=== PATIENT | male | born 1970 | race Caucasian/White ===

== ENCOUNTER 2016-06-29 16:45 | Inpatient (IN) | payer BC ==
[~2016-06-29] VITALS: Ht 182.9 cm; Wt 78.5 kg
[2016-06-29] MEDS ORDERED: Vancomycin 1.5gm/D5W 300ml 325 ML IVPB ONE (18:00)
[2016-06-29 18:18] LABS: APPEARANCE,URINE CLEAR; BASOPHILS % (AUTO) 0.8 % (0.0-2.0); EOSINOPHILS % (AUTO) 0.1 % (0.0-3.0); KETONES,URINE NEGATIVE (NEGATIVE); LEUKOCYTE ESTERASE ,URINE NEGATIVE (NEGATIVE); LYMPHOCYTES % (AUTO) 12.7 % (20.0-45.0); MEAN CORPUSCULAR HEMOGLOBIN 35.5 PG (27.0-31.0); MEAN CORPUSCULAR HGB CONC 37.3 G/DL (32.0-36.0); MEAN CORPUSCULAR VOLUME 95 FL (80-99); MEAN PLATELET VOLUME 5.8 FL (6.5-10.1); MONOCYTES % (AUTO) 7.4 % (1.0-10.0); NEUTROPHILS % (AUTO) 79.1 % (45.0-75.0); NITRITE,URINE NEGATIVE (NEGATIVE); PH,URINE 6 (4.5-8.0); PLATELET COUNT 284 K/UL (150-450); PROTEIN,URINE NEGATIVE (NEGATIVE); RED BLOOD COUNT 4.71 M/UL (4.70-6.10); RED CELL DISTRIBUTION WIDTH 12.1 % (11.6-14.8); UROBILINOGEN,URINE NORMAL MG/DL (0.0-1.0); WHITE BLOOD COUNT 13.6 K/UL (4.8-10.8)
[2016-06-29 18:23] LABS: ALANINE AMINOTRANSFERASE 36 U/L (3-41); ALBUMIN/GLOBULIN RATIO 1.8 (1.0-2.7); ANION GAP 18 (5-15); ASPARTATE AMINO TRANSFERASE 26 U/L (5-40); CALCIUM 9.7 mg/dL (8.6-10.2); CARBON DIOXIDE 25 mEQ/L (20-30); CHLORIDE 93 mEQ/L (98-107); CREATININE 1.2 mg/dL (0.7-1.2); GLOMERULAR FILTRATION RATE > 60 mL/min (>60); HEMOLYSIS 8; POTASSIUM 4.2 mEQ/L (3.4-4.9); SODIUM 136 mEQ/L (135-145)
--- NOTE | 2016-06-29 18:38 | Emergency Room Report ---
History of Present Illness General Chief Complaint: General Complaint Source: Patient Present Illness HPI Patient is a 45-year-old male sent in by private care physician for increased cough and difficulty breathing. Patient had previously been seen at his physician's office and was noted to have MRSA positive sputum.. Patient had the been noted to be sensitive to vancomycin and linezolid. The patient was noted to have increased subjective fever. He was noted to have increased a productive cough as well as generalized weakness. The patient had been previously on oral Bactrim and had worsening symptoms despite being on oral medications. Allergies: Coded Allergies: HYDROMORPHONE (Verified Allergy, Unknown, 06/29/16) Patient History Past Medical History: see triage record Reviewed Nursing Documentation: PMH: Agreed, PSxH: Agreed Nursing Documentation-PMH Past Medical History: No History, Except For Hx Asthma: Yes Review of Systems All Other Systems: negative except mentioned in HPI Physical Exam Vital Signs Date Time Temp Pulse Resp B/P Pulse Ox O2 Delivery O2 Flow Rate FiO2 06/29/16 17:15 99.1 120 20 132/78 95 Room Air Sp02 EP Interpretation: reviewed, normal General Appearance: normal inspection, well appearing, no apparent distress, alert, GCS 15 Head: atraumatic ENT: normal ENT inspection, hearing grossly normal, normal voice Neck: normal inspection, full range of motion, supple, no bony tend Respiratory: normal inspection, lungs clear, normal breath sounds, no respiratory distress, no retraction, no wheezing Cardiovascular #1: regular rate, rhythm, no edema Gastrointestinal: normal inspection, normal bowel sounds, non tender, soft, no guarding, no hernia Genitourinary: no CVA tenderness Musculoskeletal: normal inspection, back normal, normal range of motion Neurologic: normal inspection, alert, oriented x3, responsive, 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 Differential diagnosis included but was not limited to bronchitis, pneumonia, pulmonary embolism, pericarditis, asthma, foreign body. The patient sputum culture was noted to be positive for MRSA. Patient was noted to be febrile noted to have elevated white blood count. Laboratory studies were notable for elevated white blood count. The patient given IV vancomycin in emergency department. Dr. Irving was contacted for inpatient management. Labs Test 06/29/16 17:55 White Blood Count 13.6 K/UL (4.8-10.8) Red Blood Count 4.71 M/UL (4.70-6.10) Hemoglobin 16.7 G/DL (14.2-18.0) Hematocrit 44.8 % (42.0-52.0) Mean Corpuscular Volume 95 FL (80-99) Mean Corpuscular Hemoglobin 35.5 PG (27.0-31.0) Mean Corpuscular Hemoglobin Concent 37.3 G/DL (32.0-36.0) Red Cell Distribution Width 12.1 % (11.6-14.8) Platelet Count 284 K/UL (150-450) Mean Platelet Volume 5.8 FL (6.5-10.1) Neutrophils (%) (Auto) 79.1 % (45.0-75.0) Lymphocytes (%) (Auto) 12.7 % (20.0-45.0) Monocytes (%) (Auto) 7.4 % (1.0-10.0) Eosinophils (%) (Auto) 0.1 % (0.0-3.0) Basophils (%) (Auto) 0.8 % (0.0-2.0) Urine Color Pale yellow Urine Appearance Clear Urine pH 6 (4.5-8.0) Urine Specific [place] 1.005 (1.005-1.035) Urine Protein Negative (NEGATIVE) Urine Glucose (UA) Negative (NEGATIVE) Urine Ketones Negative (NEGATIVE) Urine Occult Blood Negative (NEGATIVE) Urine Nitrite Negative (NEGATIVE) Urine Bilirubin Negative (NEGATIVE) Urine Urobilinogen Normal MG/DL (0.0-1.0) Urine Leukocyte Esterase Negative (NEGATIVE) Sodium Level 136 mEQ/L (135-145) Potassium Level 4.2 mEQ/L (3.4-4.9) Chloride Level 93 mEQ/L (98-107) Carbon Dioxide Level 25 mEQ/L (20-30) Anion Gap 18 (5-15) Blood Urea Nitrogen 16 mg/dL (7-23) Creatinine 1.2 mg/dL (0.7-1.2) Estimat Glomerular Filtration Rate > 60 mL/min (>60) Glucose Level 110 mg/dL (74-106) Lactic Acid Level 0.70 mmol/L (0.66-2.22) Calcium Level 9.7 mg/dL (8.6-10.2) Total Bilirubin 0.4 mg/dL (0.0-1.2) Aspartate Amino Transf (AST/SGOT) 26 U/L (5-40) Alanine Aminotransferase (ALT/SGPT) 36 U/L (3-41) Alkaline Phosphatase 73 U/L (40-129) Total Protein 7.0 g/dL (6.6-8.7) Albumin 4.5 g/dL (3.5-5.2) Globulin 2.5 g/dL Albumin/Globulin Ratio 1.8 (1.0-2.7) Chest X-Ray Diagnostic Results EP Interpretation: Yes Findings: no consolidation, no effusion, no pneumothorax, no acute cardiopulmonary disease Number of Views: 1 Last Vital Signs Date Time Temp Pulse Resp B/P Pulse Ox O2 Delivery O2 Flow Rate FiO2 06/29/16 17:15 99.1 120 20 132/78 95 Room Air Status: unchanged Disposition: ADMITTED INPATIENT Condition: Serious Marlon Teixeira June 29, 2016 18:38
[2016-06-29 19:12] VITALS: BP 131/90
[2016-06-29] MEDS ORDERED: TRUVADA 200 MG1 EAC1 ORAL (21:01)
[2016-06-29] MEDS ORDERED: MIRTAZAPINE30 MG ORAL (21:01)
[2016-06-29] MEDS ORDERED: ADDERAL20 MG ORAL (21:02)
[2016-06-29] MEDS ORDERED: XANAX1 MG ORAL (21:03)
[2016-06-29] MEDS ORDERED: WELLBUTRIN XL150 M1 ORAL (21:03)
[2016-06-29] MEDS ORDERED: VALACYCLOVIR500 MG ORAL (21:05)
[2016-06-29] MEDS ORDERED: ANDROGEL2.5 GM TD (21:06)
[2016-06-29] MEDS ORDERED: ACCOLATE20 M1 ORAL (21:21)
[2016-06-29] MEDS ORDERED: TESTOSTERO200 MG/1 M IM (21:23)
[2016-06-29] MEDS ORDERED: ALBUTEROL2.5 MG/3 M INH (21:23)
[2016-06-29] MEDS ORDERED: Zolpidem 5mg tab ORAL PRN (21:45)
[2016-06-29 22:04] VITALS: BP 129/84
[2016-06-30] VITALS: BP 132/87
[2016-06-30 04:00] VITALS: BP 132/77
[2016-06-30] MEDS: Vancomycin 1250mg/D5W 275ml IVPB SCH ×4 (05:55→18:29)
--- NOTE | 2016-06-30 08:08 | General Progress Note ---
Progress Note Progress Note [id number] full H&P dictated TOSIN MONSIVAIS June 30, 2016 08:08
[2016-06-30 08:22] VITALS: BP 135/82
[2016-06-30 08:27] LABS: BASOPHILS % (AUTO) 1.1 % (0.0-2.0); EOSINOPHILS % (AUTO) 0.9 % (0.0-3.0); LYMPHOCYTES % (AUTO) 22.5 % (20.0-45.0); MEAN CORPUSCULAR HEMOGLOBIN 31.6 PG (27.0-31.0); MEAN CORPUSCULAR VOLUME 96 FL (80-99); MEAN PLATELET VOLUME 5.9 FL (6.5-10.1); MONOCYTES % (AUTO) 10.1 % (1.0-10.0); NEUTROPHILS % (AUTO) 65.5 % (45.0-75.0); PLATELET COUNT 310 K/UL (150-450); RED BLOOD COUNT 4.98 M/UL (4.70-6.10); RED CELL DISTRIBUTION WIDTH 12.6 % (11.6-14.8); WHITE BLOOD COUNT 10.2 K/UL (4.8-10.8)
[2016-06-30 08:41] LABS: ANION GAP 14 (5-15); CALCIUM 9.4 mg/dL (8.6-10.2); CARBON DIOXIDE 26 mEQ/L (20-30); CHLORIDE 100 mEQ/L (98-107); CREATININE 1.1 mg/dL (0.7-1.2); GLOMERULAR FILTRATION RATE > 60 mL/min (>60); HEMOLYSIS 5; POTASSIUM 4.2 mEQ/L (3.4-4.9); SODIUM 140 mEQ/L (135-145)
[2016-06-30] MEDS: Docusate 100mg cap ORAL SCH ×2 (09:00→21:46)
--- NOTE | 2016-06-30 10:48 | Diagnostic Imaging Report ---
Indication: COUGH Technique: Single portable AP view of the chest. Findings: Comparison: None. The bones and extra pulmonary soft tissues, cardiomediastinal silhouette, pulmonary vasculature and parenchyma, and pleural surfaces are unremarkable. IMPRESSION: Negative portable AP chest.
[2016-06-30 11:51] VITALS: BP 127/84
--- NOTE | 2016-06-30 15:09 | Infectious Diseases Prog Note ---
Assessment/Plan Assessment/Plan Full consult dictated: A) 1) mrsa respiratory infection, ? 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 Irving and Dr. Lu 6) thank you Subjective Allergies: Coded Allergies: HYDROMORPHONE (Verified Allergy, Unknown, 06/29/16) Objective Vital Signs Last 24 Hour Vital Signs Date Time Temp Pulse Resp B/P Pulse Ox O2 Delivery O2 Flow Rate FiO2 06/30/16 11:51 97.9 87 18 127/84 96 Nasal Cannula 2.0 06/30/16 08:22 97.7 95 16 135/82 99 Nasal Cannula 2.0 06/30/16 04:00 97.7 84 18 132/77 98 Room Air 06/30/16 00:00 98.1 94 18 132/87 97 Room Air 06/29/16 22:05 99.1 101 20 129/84 98 Room Air 06/29/16 22:04 99.1 101 20 129/84 98 Room Air 06/29/16 19:12 99.1 103 20 131/90 96 Room Air 06/29/16 17:15 99.1 120 20 132/78 95 Room Air Height (Feet): 6 Height (Inches): 0.00 Weight (Pounds): 173 Laboratory Tests Test 06/29/16 17:55 06/30/16 07:50 White Blood Count 13.6 K/UL (4.8-10.8) H 10.2 K/UL (4.8-10.8) Red Blood Count 4.71 M/UL (4.70-6.10) 4.98 M/UL (4.70-6.10) Hemoglobin 16.7 G/DL (14.2-18.0) 15.7 G/DL (14.2-18.0) Hematocrit 44.8 % (42.0-52.0) 47.7 % (42.0-52.0) Mean Corpuscular Volume 95 FL (80-99) 96 FL (80-99) Mean Corpuscular Hemoglobin 35.5 PG (27.0-31.0) H 31.6 PG (27.0-31.0) H Mean Corpuscular Hemoglobin Concent 37.3 G/DL (32.0-36.0) H 33.0 G/DL (32.0-36.0) Red Cell Distribution Width 12.1 % (11.6-14.8) 12.6 % (11.6-14.8) Platelet Count 284 K/UL (150-450) 310 K/UL (150-450) Mean Platelet Volume 5.8 FL (6.5-10.1) L 5.9 FL (6.5-10.1) L Neutrophils (%) (Auto) 79.1 % (45.0-75.0) H 65.5 % (45.0-75.0) Lymphocytes (%) (Auto) 12.7 % (20.0-45.0) L 22.5 % (20.0-45.0) Monocytes (%) (Auto) 7.4 % (1.0-10.0) 10.1 % (1.0-10.0) H Eosinophils (%) (Auto) 0.1 % (0.0-3.0) 0.9 % (0.0-3.0) Basophils (%) (Auto) 0.8 % (0.0-2.0) 1.1 % (0.0-2.0) Urine Color Pale yellow Urine Appearance Clear Urine pH 6 (4.5-8.0) Urine Specific [place] 1.005 (1.005-1.035) Urine Protein Negative (NEGATIVE) Urine Glucose (UA) Negative (NEGATIVE) Urine Ketones Negative (NEGATIVE) Urine Occult Blood Negative (NEGATIVE) Urine Nitrite Negative (NEGATIVE) Urine Bilirubin Negative (NEGATIVE) Urine Urobilinogen Normal MG/DL (0.0-1.0) Urine Leukocyte Esterase Negative (NEGATIVE) Sodium Level 136 mEQ/L (135-145) 140 mEQ/L (135-145) Potassium Level 4.2 mEQ/L (3.4-4.9) 4.2 mEQ/L (3.4-4.9) Chloride Level 93 mEQ/L (98-107) L 100 mEQ/L (98-107) Carbon Dioxide Level 25 mEQ/L (20-30) 26 mEQ/L (20-30) Anion Gap 18 (5-15) H 14 (5-15) Blood Urea Nitrogen 16 mg/dL (7-23) 14 mg/dL (7-23) Creatinine 1.2 mg/dL (0.7-1.2) 1.1 mg/dL (0.7-1.2) Estimat Glomerular Filtration Rate > 60 mL/min (>60) > 60 mL/min (>60) Glucose Level 110 mg/dL (74-106) H 112 mg/dL (74-106) H Lactic Acid Level 0.70 mmol/L (0.66-2.22) Calcium Level 9.7 mg/dL (8.6-10.2) 9.4 mg/dL (8.6-10.2) Total Bilirubin 0.4 mg/dL (0.0-1.2) Aspartate Amino Transf (AST/SGOT) 26 U/L (5-40) Alanine Aminotransferase (ALT/SGPT) 36 U/L (3-41) Alkaline Phosphatase 73 U/L (40-129) Total Protein 7.0 g/dL (6.6-8.7) Albumin 4.5 g/dL (3.5-5.2) Globulin 2.5 g/dL Albumin/Globulin Ratio 1.8 (1.0-2.7) Current Medications Medications (Trade) Dose Ordered Sig/Ben Route PRN Reason Start Time Stop Time Status Last Admin Dose Admin Acetaminophen (Tylenol) 650 mg Q6H PRN ORAL Mild Pain (Pain Scale 1-3) 06/29/16 21:45 07/29/16 21:44 Dextrose (Dextrose 50%) STAT PRN IV Hypoglycemia 06/29/16 21:45 07/29/16 21:44 Docusate Sodium (Colace) 100 mg EVERY 12 HOURS ORAL 06/30/16 09:00 07/30/16 08:59 06/30/16 09:00 Vancomycin HCl 1 ea 1 ea DAILY PRN MISC Per rx protocol 06/29/16 21:45 07/29/16 21:44 Vancomycin HCl/ Dextrose (Vancomycin/D5W) 275 ml @ 183.333 mls/hr Q12HR@0600,1800 IVPB 06/30/16 06:00 07/05/16 05:59 06/30/16 05:55 Zolpidem Tartrate (Ambien) 5 mg HSPRN PRN ORAL Insomnia 06/29/16 21:45 07/29/16 21:44 CARMITA ORDONEZ June 30, 2016 15:09
--- NOTE | 2016-06-30 15:28 | Consultation ---
History of Present Illness General Date patient seen: June 30, 2016 Chief Complaint: General Complaint Referring physician: Dr. Irving Reason for Consultation: cough Present Illness HPI 45-year-old male with hx of asthma, hx of aspergillosis sent in by private care physician for increased cough and difficulty breathing. He has been coughing since December last year. He was noted to have MRSA positive sputum.. His initial CXR was negative in ER . He is admitted for further work up. Allergies: Coded Allergies: HYDROMORPHONE (Verified Allergy, Unknown, 06/29/16) Medication History Scheduled Alprazolam* (Xanax*), 1 TAB ORAL BID, (Reported) Bupropion HCl (Wellbutrin Xl), 300 MG ORAL DAILY, (Reported) Dextroamphetamine/Amphetamine (Adderall 20 mg Tablet), 20 MG ORAL TID, (Reported ) Emtricitabine/Tenofovir 200-300MG* (Truvada 200-300MG*), 1 TAB ORAL DAILY, ( Reported) Mirtazapine* (Remeron*), 60 MG ORAL BEDTIME, (Reported) Testosterone Cypionate (Testosterone Cypionate), 200 MG IM ONCE A WEEK, ( Reported) Valacyclovir Hcl* (Valtrex*), 1,000 MG ORAL DAILY, (Reported) Zafirlukast (Accolate), 20 MG ORAL TWICE A DAY, (Reported) Scheduled PRN Albuterol Sulfate* (Albuterol Sulfate Hhn*), 3 ML INH Q6HR PRN for Shortness of Breath, (Reported) Discontinued Medications Testosterone (Androgel), 1 PKT TD, (Reported) Discontinued Reason: Prescription changed Patient History Healthcare decision maker pt A&Ox4 Resuscitation status Full Code Advanced Directive on File Past Medical/Surgical History Past Medical/Surgical History: (1) Asthma Review of Systems All Other Systems: negative except mentioned in HPI Physical Exam General Appearance: WD/WN Lines, tubes and drains: peripheral, central line HEENT: normocephalic, atraumatic Neck: non-tender, normal alignment Respiratory/Chest: chest wall non-tender, lungs clear Cardiovascular/Chest: normal peripheral pulses, normal rate Abdomen: normal bowel sounds, non tender Last 24 Hour Vital Signs Date Time Temp Pulse Resp B/P Pulse Ox O2 Delivery O2 Flow Rate FiO2 06/30/16 11:51 97.9 87 18 127/84 96 Nasal Cannula 2.0 06/30/16 08:22 97.7 95 16 135/82 99 Nasal Cannula 2.0 06/30/16 04:00 97.7 84 18 132/77 98 Room Air 06/30/16 00:00 98.1 94 18 132/87 97 Room Air 06/29/16 22:05 99.1 101 20 129/84 98 Room Air 06/29/16 22:04 99.1 101 20 129/84 98 Room Air 06/29/16 19:12 99.1 103 20 131/90 96 Room Air 06/29/16 17:15 99.1 120 20 132/78 95 Room Air Intake and Output 06/29/16 06/30/16 19:00 07:00 Intake Total 1000 ml 240 ml Balance 1000 ml 240 ml Intake Oral 0 ml 240 ml IV Total 1000 ml # Voids 2 Laboratory Tests Test 06/29/16 17:55 06/30/16 07:50 White Blood Count 13.6 K/UL (4.8-10.8) H 10.2 K/UL (4.8-10.8) Red Blood Count 4.71 M/UL (4.70-6.10) 4.98 M/UL (4.70-6.10) Hemoglobin 16.7 G/DL (14.2-18.0) 15.7 G/DL (14.2-18.0) Hematocrit 44.8 % (42.0-52.0) 47.7 % (42.0-52.0) Mean Corpuscular Volume 95 FL (80-99) 96 FL (80-99) Mean Corpuscular Hemoglobin 35.5 PG (27.0-31.0) H 31.6 PG (27.0-31.0) H Mean Corpuscular Hemoglobin Concent 37.3 G/DL (32.0-36.0) H 33.0 G/DL (32.0-36.0) Red Cell Distribution Width 12.1 % (11.6-14.8) 12.6 % (11.6-14.8) Platelet Count 284 K/UL (150-450) 310 K/UL (150-450) Mean Platelet Volume 5.8 FL (6.5-10.1) L 5.9 FL (6.5-10.1) L Neutrophils (%) (Auto) 79.1 % (45.0-75.0) H 65.5 % (45.0-75.0) Lymphocytes (%) (Auto) 12.7 % (20.0-45.0) L 22.5 % (20.0-45.0) Monocytes (%) (Auto) 7.4 % (1.0-10.0) 10.1 % (1.0-10.0) H Eosinophils (%) (Auto) 0.1 % (0.0-3.0) 0.9 % (0.0-3.0) Basophils (%) (Auto) 0.8 % (0.0-2.0) 1.1 % (0.0-2.0) Urine Color Pale yellow Urine Appearance Clear Urine pH 6 (4.5-8.0) Urine Specific [place] 1.005 (1.005-1.035) Urine Protein Negative (NEGATIVE) Urine Glucose (UA) Negative (NEGATIVE) Urine Ketones Negative (NEGATIVE) Urine Occult Blood Negative (NEGATIVE) Urine Nitrite Negative (NEGATIVE) Urine Bilirubin Negative (NEGATIVE) Urine Urobilinogen Normal MG/DL (0.0-1.0) Urine Leukocyte Esterase Negative (NEGATIVE) Sodium Level 136 mEQ/L (135-145) 140 mEQ/L (135-145) Potassium Level 4.2 mEQ/L (3.4-4.9) 4.2 mEQ/L (3.4-4.9) Chloride Level 93 mEQ/L (98-107) L 100 mEQ/L (98-107) Carbon Dioxide Level 25 mEQ/L (20-30) 26 mEQ/L (20-30) Anion Gap 18 (5-15) H 14 (5-15) Blood Urea Nitrogen 16 mg/dL (7-23) 14 mg/dL (7-23) Creatinine 1.2 mg/dL (0.7-1.2) 1.1 mg/dL (0.7-1.2) Estimat Glomerular Filtration Rate > 60 mL/min (>60) > 60 mL/min (>60) Glucose Level 110 mg/dL (74-106) H 112 mg/dL (74-106) H Lactic Acid Level 0.70 mmol/L (0.66-2.22) Calcium Level 9.7 mg/dL (8.6-10.2) 9.4 mg/dL (8.6-10.2) Total Bilirubin 0.4 mg/dL (0.0-1.2) Aspartate Amino Transf (AST/SGOT) 26 U/L (5-40) Alanine Aminotransferase (ALT/SGPT) 36 U/L (3-41) Alkaline Phosphatase 73 U/L (40-129) Total Protein 7.0 g/dL (6.6-8.7) Albumin 4.5 g/dL (3.5-5.2) Globulin 2.5 g/dL Albumin/Globulin Ratio 1.8 (1.0-2.7) Height (Feet): 6 Height (Inches): 0.00 Weight (Pounds): 173 Medications Current Medications Medications (Trade) Dose Ordered Sig/Ben Route PRN Reason Start Time Stop Time Status Last Admin Dose Admin Acetaminophen (Tylenol) 650 mg Q6H PRN ORAL Mild Pain (Pain Scale 1-3) 06/29/16 21:45 07/29/16 21:44 Albuterol/ Ipratropium 3 ml 3 ml Q6HRT HHN 06/30/16 19:00 07/05/16 18:59 Ceftriaxone Sodium/Dextrose (Rocephin/D5W) 50 ml @ 100 mls/hr Q24H IVPB 06/30/16 16:00 07/07/16 15:59 Dextrose (Dextrose 50%) STAT PRN IV Hypoglycemia 06/29/16 21:45 07/29/16 21:44 Docusate Sodium (Colace) 100 mg EVERY 12 HOURS ORAL 06/30/16 09:00 07/30/16 08:59 06/30/16 09:00 Vancomycin HCl 1 ea 1 ea DAILY PRN MISC Per rx protocol 06/29/16 21:45 07/29/16 21:44 Vancomycin HCl/ Dextrose (Vancomycin/D5W) 275 ml @ 183.333 mls/hr Q12HR@0600,1800 IVPB 06/30/16 06:00 07/05/16 05:59 06/30/16 05:55 Zolpidem Tartrate (Ambien) 5 mg HSPRN PRN ORAL Insomnia 06/29/16 21:45 07/29/16 21:44 Assessment/Plan Problem List: (1) Persistent cough ICD Codes: R05 - Cough SNOMED: 999913115 (2) Asthma ICD Codes: J45.909 - Unspecified asthma, uncomplicated SNOMED: 021481379 (3) MRSA (methicillin resistant Staphylococcus aureus) infection ICD Codes: A49.02 - Methicillin resistant Staphylococcus aureus infection, unspecified site SNOMED: 156795834 Assessment/Plan sputum induction CT chest respiratory treatment phenergen +VIDA Pennington June 30, 2016 15:28
[2016-06-30 15:39] VITALS: BP 123/81
--- NOTE | 2016-06-30 15:50 | Diagnostic Imaging Report ---
Indication: COUGH Technique: Single portable AP view of the chest. Findings: Comparison: 06/29/16 Small calcified nodules again noted in left lung. The bones and extra pulmonary soft tissues, cardiomediastinal silhouette, pulmonary vasculature and parenchyma, and pleural surfaces remain otherwise unremarkable. IMPRESSION: Calcified old granulomas disease left lung Otherwise negative portable AP chest No change from prior exam.
[2016-06-30] MEDS: cefTRIAXone 1 GM in D5W 50 ML IVPB SCH (16:13)
--- NOTE | 2016-06-30 17:30 | History and Physical Report ---
DATE OF ADMISSION: 06/29/2016 PRIMARY PHYSICIAN: Nixon Rivera M.D. REASON FOR ADMISSION: MRSA pneumonia. CHIEF COMPLAINT: Cough. HISTORY OF PRESENT ILLNESS: The patient is a very pleasant 45-year-old male, with past medical history significant for asthma, started having cough. Apparently, the patient was with his father who unfortunately in the hospital for period of time in December. He started started having cough, phlegm. He received multiple course of treatment as an outpatient including most recent Bactrim with no improvement. The patient had an sputum induce culture, which revealed MRSA, which was only sensitive to vancomycin and linezolid and for that, the patient was sent to emergency room. I was called for admission. PAST MEDICAL HISTORY: Asthma. ALLERGIES: He is allergic to hydromorphone. SOCIAL HISTORY: He works as a salesman. There is no history of tobacco, alcohol or drug use. FAMILY HISTORY: Negative for any history of premature heart disease. REVIEW OF SYSTEMS: General: He complained of generalized weakness. Denies any fever, chills, or night sweats. Head And Neck: Neck denies any dysphagia, odynophagia, blurry vision, headache, or neck stiffness. Pulmonary: Complaint of shortness of breath and cough with yellow sputum. Cardiovascular: Complained of chest tightness and some palpitations. Gastrointestinal: Denies any nausea, vomiting, diarrhea, hematemesis, or hematochezia. Genitourinary: Denies any dysuria, frequency, or hematuria. Musculoskeletal: He complained of generalized weakness. Denies any localized weakness or numbness. PHYSICAL EXAMINATION: VITAL SIGNS: The patient has temperature of 99 degrees, blood pressure of 132/78, pulse rate of 120, respiratory rate of 18, and pulse oximetry of 95%. HEAD AND NECK: No JVP. No LAD. No thyromegaly. Extraocular movement intact. Pupils are reactive to light and accommodation. LUNGS: Diffuse wheezing in both lung. CARDIAC: Tachy S1 and S2. No murmur. No rub. ABDOMEN: Soft, nontender, and nondistended. EXTREMITY: No edema. No clubbing. No cyanosis. LABORATORY AND DIAGNOSTIC DATA: The patient had WBC count of 13.6, hemoglobin of 16.7, hematocrit of 44.8, and platelet count of 248,000. Chemistry reveals sodium 136, potassium 4, chloride 93, bicarbonate 25, BUN of 18, creatinine of 1.2, and glucose of 110. Calcium of 9.7. AST of 26, ALT of 36, and alkaline phosphatase of 73. urinalysis revealed specific gravity of 1.005, no WBC and no RBC. There is no chest x-ray. ASSESSMENT: 1. Methicillin resistant Staphylococcus aureus pneumonia. 2. Asthma exacerbation. PLAN: To start the patient on vancomycin. . was already called by Dr. Rivera from infectious disease standpoint of view. I would start a breathing treatment around the clock, DVT prophylaxis, and monitor the electrolytes closely. Miryam Irving M.D. DR: DAVON JOB#: [id number] CC:
[2016-06-30] MEDS: DuoNeb 0.5-3(2.5)mg/3ml neb HHN SCH (19:33)
[2016-06-30 20:00] VITALS: BP 145/93
--- NOTE | 2016-06-30 20:34 | Cardiology Progress Note ---
Assessment/Plan Assessment/Plan The patient is seen and examined, full consult note will be dictated. Objective Last 24 Hour Vital Signs Date Time Temp Pulse Resp B/P Pulse Ox O2 Delivery O2 Flow Rate FiO2 06/30/16 20:00 97.0 96 20 145/93 98 Nasal Cannula 2.0 06/30/16 19:38 99 Nasal Cannula 2.0 06/30/16 19:37 98 18 98 Nasal Cannula 2.0 06/30/16 19:36 95 18 98 Nasal Cannula 2.0 06/30/16 19:36 96 18 Nasal Cannula 2.0 06/30/16 19:35 Nasal Cannula 2.0 06/30/16 15:39 97.7 91 19 123/81 96 Nasal Cannula 2.0 06/30/16 11:51 97.9 87 18 127/84 96 Nasal Cannula 2.0 06/30/16 08:22 97.7 95 16 135/82 99 Nasal Cannula 2.0 06/30/16 04:00 97.7 84 18 132/77 98 Room Air 06/30/16 00:00 98.1 94 18 132/87 97 Room Air 06/29/16 22:05 99.1 101 20 129/84 98 Room Air 06/29/16 22:04 99.1 101 20 129/84 98 Room Air Intake and Output 06/29/16 06/30/16 19:00 07:00 Intake Total 1000 ml 240 ml Balance 1000 ml 240 ml Intake Oral 0 ml 240 ml IV Total 1000 ml # Voids 2 Laboratory Tests Test 06/30/16 07:50 White Blood Count 10.2 K/UL (4.8-10.8) Red Blood Count 4.98 M/UL (4.70-6.10) Hemoglobin 15.7 G/DL (14.2-18.0) Hematocrit 47.7 % (42.0-52.0) Mean Corpuscular Volume 96 FL (80-99) Mean Corpuscular Hemoglobin 31.6 PG (27.0-31.0) H Mean Corpuscular Hemoglobin Concent 33.0 G/DL (32.0-36.0) Red Cell Distribution Width 12.6 % (11.6-14.8) Platelet Count 310 K/UL (150-450) Mean Platelet Volume 5.9 FL (6.5-10.1) L Neutrophils (%) (Auto) 65.5 % (45.0-75.0) Lymphocytes (%) (Auto) 22.5 % (20.0-45.0) Monocytes (%) (Auto) 10.1 % (1.0-10.0) H Eosinophils (%) (Auto) 0.9 % (0.0-3.0) Basophils (%) (Auto) 1.1 % (0.0-2.0) Sodium Level 140 mEQ/L (135-145) Potassium Level 4.2 mEQ/L (3.4-4.9) Chloride Level 100 mEQ/L (98-107) Carbon Dioxide Level 26 mEQ/L (20-30) Anion Gap 14 (5-15) Blood Urea Nitrogen 14 mg/dL (7-23) Creatinine 1.1 mg/dL (0.7-1.2) Estimat Glomerular Filtration Rate > 60 mL/min (>60) Glucose Level 112 mg/dL (74-106) H Calcium Level 9.4 mg/dL (8.6-10.2) ZENIA MATHEW June 30, 2016 20:34
[2016-07-01] VITALS: BP 132/74
[2016-07-01] MEDS: DuoNeb 0.5-3(2.5)mg/3ml neb HHN SCH ×4 (01:00→19:40)
[2016-07-01 04:00] VITALS: BP 132/74
[2016-07-01 05:03] LABS: BASOPHILS % (AUTO) 1.2 % (0.0-2.0); EOSINOPHILS % (AUTO) 1.1 % (0.0-3.0); LYMPHOCYTES % (AUTO) 22.2 % (20.0-45.0); MEAN CORPUSCULAR HGB CONC 33.4 G/DL (32.0-36.0); MEAN CORPUSCULAR VOLUME 96 FL (80-99); MEAN PLATELET VOLUME 6.2 FL (6.5-10.1); MONOCYTES % (AUTO) 9.7 % (1.0-10.0); NEUTROPHILS % (AUTO) 65.8 % (45.0-75.0); PLATELET COUNT 302 K/UL (150-450); RED BLOOD COUNT 5.07 M/UL (4.70-6.10); RED CELL DISTRIBUTION WIDTH 12.1 % (11.6-14.8); WHITE BLOOD COUNT 10.7 K/UL (4.8-10.8)
[2016-07-01] MEDS: Vancomycin 1250mg/D5W 275ml IVPB SCH ×6 (05:22→21:06)
[2016-07-01 05:34] LABS: ANION GAP 13 (5-15); CALCIUM 9.1 mg/dL (8.6-10.2); CARBON DIOXIDE 27 mEQ/L (20-30); CHLORIDE 99 mEQ/L (98-107); GLOMERULAR FILTRATION RATE > 60 mL/min (>60); HEMOLYSIS 8; SODIUM 139 mEQ/L (135-145)
--- NOTE | 2016-07-01 05:51 | Consultation ---
DATE OF CONSULTATION: INFECTIOUS DISEASE CONSULTATION REFERRING PHYSICIAN: Miryam Irving M.D. REASON FOR CONSULTATION: MRSA respiratory infection, possible MRSA pneumonia. CHIEF COMPLAINT: The patient's chief complaint coming to the hospital is MRSA pneumonia. HISTORY OF PRESENT ILLNESS: This is a 45-year-old male who has a history of asthma. No other significant past medical history. He does have a history of aspergillosis treated in the past. The patient has been seeing his primary care physician, Dr. Nixon Rivera as an outpatient. I have discussed the case with Dr. Rivera at length. The patient had full discussion with Dr. Rivera and there is MRSA in the sputum and has MRSA respiratory infection. He has been tried on Bactroban, trial of steroids because of the history of underlying asthma also. The sputum came back with MRSA that was resistant to Bactrim. Because of worsening congestion and shortness of breath, the patient was admitted to [facility] for further management with IV antibiotics and further workup. The patient has been started on vancomycin, I may add Rocephin and sputum culture here is pending. Chest x-ray initially was negative, followup chest x-ray has been ordered, and a CT scan of the chest has been ordered. Case discussed with Dr. Lu, Pulmonary Medicine and also communicated with Dr. Irving. MAR was noted. Orders were noted. Notes were reviewed. Case discussed with RN. PAST MEDICAL HISTORY: The patient has a history of asthma and also history of aspergilloses in the past that was treated per the patient, also discussion with Dr. Rivera, this was I believe a few years ago. He does not have history of diabetes, hypertension. He is on PrEP therapy with Truvada, but no history of HIV, he is HIV negative. No history of malignancy. It looks like he does have a history of herpes in the past, he was on Valtrex, I think as a suppressive therapy. Psychiatric, he is on Wellbutrin and Xanax. MEDICATIONS: Upon reviewing the MAR, the patient is on the following medications. He is on vancomycin, I am adding Rocephin. He is on zolpidem, Tylenol, and IV fluids. He is going to get breathing treatments. He does have an inhaler, looks like at home. Medications prior to admission include albuterol, it looks like p.r.n. for shortness of breath. He is on Xanax, Wellbutrin, Adderall, Truvada, Remeron, testosterone, Valtrex, and Accolate. ALLERGIES: Hydromorphone. SOCIAL HISTORY: He is a past smoker. No alcohol or drug use. FAMILY HISTORY: No mention of exposure to tuberculosis or cancer. REVIEW OF SYSTEMS: Constitutional: He has no focal weakness, has generalized fatigue. He does have low grade fever, but no chills. No weight loss. Head And Neck: No head pain or neck pain. Cardiac: No chest pain or palpitations. GI: No nausea, vomiting, or diarrhea. : No dysuria or frequency. Pulmonary: He had congestion and sputum production. Skin: No rash. Neurologic: No seizures. Rest of the review of systems is otherwise limited. PHYSICAL EXAMINATION: VITAL SIGNS: Temperature 97.9 degrees, T-max 99.1 degrees, pulse rate 87, respiratory rate 18, blood pressure 124/84, and saturation 96%. GENERAL: The patent is alert, responsive, not in acute distress. He is alert and oriented x3. Mild congestion noted. HEAD AND NECK: Neck is supple. No thrush. No facial droop. Eye, no icterus. HEART: Regular. No gallop or murmur. LUNGS: Bilateral rhonchi. Possible rales and wheezing. ABDOMEN: Soft. Positive bowel sounds. SKIN: No rash or dermatitis. MUSCULOSKELETAL: No effusions or contractures. Lower extremities without cellulitis. PERIPHERAL VASCULAR: No cyanosis or gangrene. GENITOURINARY: He has no Garcia. LINE: Line site is without phlebitis. NEUROLOGIC: Generalized weakness. Responsive. LABORATORY AND DIAGNOSTIC DATA: Laboratory data is as follows. Creatinine is 1.1. White count on admission is 13.6, hemoglobin 16.7. White count now is 10.2, hemoglobin 15.7. The patient's chest x-ray initially was negative. Sputum culture was pending. Outside sputum culture grew out MRSA, only sensitive to daptomycin, linezolid, and vancomycin, was resistant to Bactrim. ASSESSMENT AND PLAN: 1. The patient sounds like he has an methicillin-resistant Staphylococcus aureus respiratory infection that was refractory to oral therapy and also resistant to oral therapy. The patient is congested and short of breath. The patient is on vancomycin, I am going to add Rocephin to cover other pathogens such as haemophilus influenza and also other common respiratory infections. Continue vancomycin and Rocephin to cover possible methicillin-resistant Staphylococcus aureus pneumonia and other pathogens. Check followup chest x-ray and CT scan of the chest. Initial chest x-ray is negative. The patient also is beginning breathing treatments and check sputum culture here. Case was discussed with Dr. Lu and also communicated with Dr. Irving. 2. The patient has history of aspergillosis , status post treatment. 3. History of asthma. 4. Possible psychiatric disease. 5. The patient is on pre-exposure prophylaxis therapy with Truvada. 6. Past smoker. 7. Allergy to hydromorphone. 8. Case was discussed with Dr. Nixon Rivera. 9. Case was discussed with the patient. 10. Continue treatment per primary consultants. Agapito Chang M.D. DR: Luis JOB#: [id number] CC:
[2016-07-01 08:00] VITALS: BP 115/78
[2016-07-01] MEDS: BuPROPion XL 150mg tab ORAL SCH (08:56)
[2016-07-01] MEDS: ALPRAZolam 0.5mg tab ORAL SCH ×2 (08:56→17:54)
[2016-07-01] MEDS: Docusate 100mg cap ORAL SCH ×2 (08:56→20:22)
--- NOTE | 2016-07-01 09:18 | General Progress Note ---
Assessment/Plan Status: doing well, stable, tolerating diet, ambulating well Status Narrative 1.MRSA PNA 2.anxiety 3. depression 4.ADHD 5.Asthma Assessment/Plan PLAN to continue breathing treatment iv anabiotic restart home meds fallow up with sputum culture Subjective Constitutional: Reports: malaise, weakness HEENT: Reports: no symptoms Cardiovascular: Reports: no symptoms Respiratory: Reports: SOB with excertion, sputum, wheezing Gastrointestinal/Abdominal: Reports: no symptoms Genitourinary: Reports: no symptoms Neurologic/Psychiatric: Reports: anxiety Endocrine: Reports: no symptoms Hematologic/Lymphatic: Reports: no symptoms Allergies: Coded Allergies: HYDROMORPHONE (Verified Allergy, Unknown, 06/29/16) All Systems: reviewed and negative except above Objective Last 24 Hour Vital Signs Date Time Temp Pulse Resp B/P Pulse Ox O2 Delivery O2 Flow Rate FiO2 07/01/16 08:00 97.3 84 21 115/78 97 07/01/16 07:53 Nasal Cannula 07/01/16 07:52 Nasal Cannula 07/01/16 07:52 Nasal Cannula 2.0 07/01/16 07:51 98 Nasal Cannula 2.0 07/01/16 04:00 97.0 94 20 132/74 07/01/16 01:02 Nasal Cannula 2.0 07/01/16 01:02 Nasal Cannula 2.0 07/01/16 00:00 97.7 104 20 132/74 97 Nasal Cannula 2.0 06/30/16 20:00 97.0 96 20 145/93 98 Nasal Cannula 2.0 06/30/16 19:38 99 Nasal Cannula 2.0 06/30/16 19:37 98 18 98 Nasal Cannula 2.0 06/30/16 19:36 95 18 98 Nasal Cannula 2.0 06/30/16 19:36 96 18 Nasal Cannula 2.0 06/30/16 19:35 Nasal Cannula 2.0 06/30/16 15:39 97.7 91 19 123/81 96 Nasal Cannula 2.0 06/30/16 11:51 97.9 87 18 127/84 96 Nasal Cannula 2.0 Intake and Output 06/30/16 07/01/16 19:00 07:00 Intake Total 670 ml 275.000 ml Balance 670 ml 275.000 ml Intake Oral 620 ml IV Total 50 ml 275.000 ml # Voids 4 3 Laboratory Tests 07/01/16 04:50: White Blood Count 10.7, Red Blood Count 5.07, Hemoglobin 16.2, Hematocrit 48.6, Mean Corpuscular Volume 96, Mean Corpuscular Hemoglobin 32.0H, Mean Corpuscular Hemoglobin Concent 33.4, Red Cell Distribution Width 12.1, Platelet Count 302, Mean Platelet Volume 6.2L, Neutrophils (%) (Auto) 65.8, Lymphocytes (%) (Auto) 22.2, Monocytes (%) (Auto) 9.7, Eosinophils (%) (Auto) 1.1, Basophils (%) (Auto ) 1.2, Sodium Level 139, Potassium Level 4.0, Chloride Level 99, Carbon Dioxide Level 27, Anion Gap 13, Blood Urea Nitrogen 18, Creatinine 1.0, Estimat Glomerular Filtration Rate > 60, Glucose Level 108H, Calcium Level 9.1, Vancomycin Level Trough 9.0 Height (Feet): 6 Height (Inches): 0.00 Weight (Pounds): 173 Objective HEAD AND NECK: No JVP. No LAD. No thyromegaly. Extraocular movement intact. Pupils are reactive to light and accommodation. LUNGS: Diffuse wheezing in both lung. CARDIAC: Tachy S1 and S2. No murmur. No rub. ABDOMEN: Soft, nontender, and nondistended. EXTREMITY: No edema. No clubbing. No cyanosis. TOSIN MONSIVAIS July 01, 2016 09:18
[2016-07-01 11:56] VITALS: BP 149/72
--- NOTE | 2016-07-01 13:48 | Diagnostic Imaging Report ---
Indication: Dyspnea Technique: Continuous helical transaxial imaging of the chest was obtained from the thoracic inlet to the upper abdomen after intravenous nonionic contrast administration. Coronal 2-D reformats were also obtained. Total Dose length Product (DLP): [address] Dose Index Volume (CTDIvol): 8, 89, 17 mGy Comparison: none Findings: The lungs are essentially clear. No adenopathy or abnormal fluid collections identified within the chest. The heart, aorta and pulmonary arteries appear unremarkable. Small calcified granuloma is noted in the lingula. The upper abdomen is unremarkable. Impression: No acute findings. Calcified granuloma in the left lung The CT scanner at [facility] is accredited by the [employer] and the scans are performed using dose optimization techniques as appropriate to a performed exam including Automatic Exposure control.
--- NOTE | 2016-07-01 14:47 | Pulmonology Progress Note ---
Assessment/Plan Problems: (1) Purulent bronchitis (2) Persistent cough (3) Asthma (4) MRSA (methicillin resistant Staphylococcus aureus) infection Assessment/Plan Iv antibiotics check cultures CT chest reviewed. no abnormal findings check electrolytes dvt prophylaxis Subjective ROS Limited/Unobtainable: No Interval Events: still has lots of phlegmn Constitutional: Reports: fatigue Allergies: Coded Allergies: HYDROMORPHONE (Verified Allergy, Unknown, 06/29/16) Objective Last 24 Hour Vital Signs Date Time Temp Pulse Resp B/P Pulse Ox O2 Delivery O2 Flow Rate FiO2 07/01/16 13:31 106 18 Nasal Cannula 2.0 07/01/16 13:20 103 20 98 Nasal Cannula 2.0 07/01/16 11:56 97.3 103 22 149/72 96 07/01/16 08:00 97.3 84 21 115/78 97 07/01/16 07:53 Nasal Cannula 07/01/16 07:52 Nasal Cannula 07/01/16 07:52 Nasal Cannula 2.0 07/01/16 07:51 98 Nasal Cannula 2.0 07/01/16 04:00 97.0 94 20 132/74 07/01/16 01:02 Nasal Cannula 2.0 07/01/16 01:02 Nasal Cannula 2.0 07/01/16 00:00 97.7 104 20 132/74 97 Nasal Cannula 2.0 06/30/16 20:00 97.0 96 20 145/93 98 Nasal Cannula 2.0 06/30/16 19:38 99 Nasal Cannula 2.0 06/30/16 19:37 98 18 98 Nasal Cannula 2.0 06/30/16 19:36 95 18 98 Nasal Cannula 2.0 06/30/16 19:36 96 18 Nasal Cannula 2.0 06/30/16 19:35 Nasal Cannula 2.0 06/30/16 15:39 97.7 91 19 123/81 96 Nasal Cannula 2.0 Intake and Output 06/30/16 07/01/16 19:00 07:00 Intake Total 670 ml 275.000 ml Balance 670 ml 275.000 ml Intake Oral 620 ml IV Total 50 ml 275.000 ml # Voids 4 3 General Appearance: WD/WN HEENT: normocephalic, atraumatic Respiratory/Chest: chest wall non-tender, lungs clear Cardiovascular: normal peripheral pulses, normal rate Abdomen: normal bowel sounds Extremities: no cyanosis Skin: no rash Microbiology Date/Time Source Procedure Growth Status 06/29/16 17:55 Blood Blood Culture - Preliminary NO GROWTH AFTER 24 HOURS Resulted 06/29/16 17:55 Blood Blood Culture - Preliminary NO GROWTH AFTER 24 HOURS Resulted 06/30/16 21:30 Sputum Gram Stain - Final Resulted 06/30/16 21:30 Sputum Sputum Culture Pending Resulted Laboratory Tests 07/01/16 04:50: White Blood Count 10.7, Red Blood Count 5.07, Hemoglobin 16.2, Hematocrit 48.6, Mean Corpuscular Volume 96, Mean Corpuscular Hemoglobin 32.0H, Mean Corpuscular Hemoglobin Concent 33.4, Red Cell Distribution Width 12.1, Platelet Count 302, Mean Platelet Volume 6.2L, Neutrophils (%) (Auto) 65.8, Lymphocytes (%) (Auto) 22.2, Monocytes (%) (Auto) 9.7, Eosinophils (%) (Auto) 1.1, Basophils (%) (Auto ) 1.2, Sodium Level 139, Potassium Level 4.0, Chloride Level 99, Carbon Dioxide Level 27, Anion Gap 13, Blood Urea Nitrogen 18, Creatinine 1.0, Estimat Glomerular Filtration Rate > 60, Glucose Level 108H, Calcium Level 9.1, Vancomycin Level Trough 9.0 Current Medications Medications (Trade) Dose Ordered Sig/Ben Route PRN Reason Start Time Stop Time Status Last Admin Dose Admin Acetaminophen (Tylenol) 650 mg Q6H PRN ORAL Mild Pain (Pain Scale 1-3) 06/29/16 21:45 07/29/16 21:44 Albuterol/ Ipratropium 3 ml 3 ml Q6HRT HHN 06/30/16 19:00 07/05/16 18:59 07/01/16 13:23 Alprazolam 1 mg 1 mg BID ORAL 07/01/16 09:00 07/08/16 08:59 Bupropion HCl (Wellbutrin XL) 300 mg DAILY ORAL 07/01/16 09:00 07/31/16 08:59 07/01/16 08:56 Ceftriaxone Sodium/Dextrose (Rocephin/D5W) 50 ml @ 100 mls/hr Q24H IVPB 06/30/16 16:00 07/07/16 15:59 06/30/16 16:13 Dextrose (Dextrose 50%) STAT PRN IV Hypoglycemia 06/29/16 21:45 07/29/16 21:44 Docusate Sodium (Colace) 100 mg EVERY 12 HOURS ORAL 06/30/16 09:00 07/30/16 08:59 07/01/16 08:56 Promethazine HCl/ Codeine (Phenergan with Codeine) 5 ml Q4H PRN ORAL For Cough 06/30/16 15:45 07/30/16 15:44 Vancomycin HCl (Vanco rx to dose) 1 ea DAILY PRN MISC Per rx protocol 06/29/16 21:45 07/29/16 21:44 Vancomycin HCl/ Dextrose (Vancomycin/D5W) 275 ml @ 183.333 mls/hr Q8HR@0600,1400,2200 IVPB 07/01/16 14:00 07/06/16 13:59 07/01/16 14:19 Zolpidem Tartrate (Ambien) 5 mg HSPRN PRN ORAL Insomnia 06/29/16 21:45 07/29/16 21:44 VIDA GUTIERREZ July 01, 2016 14:47
[2016-07-01 15:45] VITALS: BP 122/68
[2016-07-01] MEDS: cefTRIAXone 1 GM in D5W 50 ML IVPB SCH (17:56)
[2016-07-01 19:55] VITALS: BP 126/86
--- NOTE | 2016-07-01 23:57 | Cardiology Progress Note ---
Assessment/Plan Assessment/Plan 1. Dyspnea likely due to PNA. 2. Non-cardiac chest pain. 3. Sinus tachycardia, likely due to underlying infection/pneumonia, continue hydration, pain control, if persistent may consider CCB or B-blockers. Subjective Subjective Sinus tachycardia at 101. Objective Last 24 Hour Vital Signs Date Time Temp Pulse Resp B/P Pulse Ox O2 Delivery O2 Flow Rate FiO2 07/01/16 19:55 96.4 97 18 126/86 98 Room Air 07/01/16 19:51 98 18 99 Room Air 21 07/01/16 19:43 Room Air 07/01/16 19:43 97 Room Air 21 07/01/16 19:43 99 20 97 Room Air 21 07/01/16 15:45 97.5 95 21 122/68 99 Nasal Cannula 2.0 07/01/16 13:31 106 18 Nasal Cannula 2.0 07/01/16 13:20 103 20 98 Nasal Cannula 2.0 07/01/16 11:56 97.3 103 22 149/72 96 07/01/16 08:00 97.3 84 21 115/78 97 07/01/16 07:53 Nasal Cannula 07/01/16 07:52 Nasal Cannula 07/01/16 07:52 Nasal Cannula 2.0 07/01/16 07:51 98 Nasal Cannula 2.0 07/01/16 04:00 97.0 94 20 132/74 07/01/16 01:02 Nasal Cannula 2.0 07/01/16 01:02 Nasal Cannula 2.0 07/01/16 00:00 97.7 104 20 132/74 97 Nasal Cannula 2.0 Intake and Output 06/30/16 07/01/16 19:00 07:00 Intake Total 670 ml 275.000 ml Balance 670 ml 275.000 ml Intake Oral 620 ml IV Total 50 ml 275.000 ml # Voids 4 3 Laboratory Tests Test 07/01/16 04:50 White Blood Count 10.7 K/UL (4.8-10.8) Red Blood Count 5.07 M/UL (4.70-6.10) Hemoglobin 16.2 G/DL (14.2-18.0) Hematocrit 48.6 % (42.0-52.0) Mean Corpuscular Volume 96 FL (80-99) Mean Corpuscular Hemoglobin 32.0 PG (27.0-31.0) H Mean Corpuscular Hemoglobin Concent 33.4 G/DL (32.0-36.0) Red Cell Distribution Width 12.1 % (11.6-14.8) Platelet Count 302 K/UL (150-450) Mean Platelet Volume 6.2 FL (6.5-10.1) L Neutrophils (%) (Auto) 65.8 % (45.0-75.0) Lymphocytes (%) (Auto) 22.2 % (20.0-45.0) Monocytes (%) (Auto) 9.7 % (1.0-10.0) Eosinophils (%) (Auto) 1.1 % (0.0-3.0) Basophils (%) (Auto) 1.2 % (0.0-2.0) Sodium Level 139 mEQ/L (135-145) Potassium Level 4.0 mEQ/L (3.4-4.9) Chloride Level 99 mEQ/L (98-107) Carbon Dioxide Level 27 mEQ/L (20-30) Anion Gap 13 (5-15) Blood Urea Nitrogen 18 mg/dL (7-23) Creatinine 1.0 mg/dL (0.7-1.2) Estimat Glomerular Filtration Rate > 60 mL/min (>60) Glucose Level 108 mg/dL (74-106) H Calcium Level 9.1 mg/dL (8.6-10.2) Vancomycin Level Trough 9.0 ug/mL (5.0-12.0) Microbiology Date/Time Source Procedure Growth Status 06/29/16 17:55 Blood Blood Culture - Preliminary NO GROWTH AFTER 24 HOURS Resulted 06/29/16 17:55 Blood Blood Culture - Preliminary NO GROWTH AFTER 24 HOURS Resulted 06/30/16 21:30 Sputum Gram Stain - Final Resulted 06/30/16 21:30 Sputum Sputum Culture Pending Resulted Objective HEAD AND NECK: Atraumatic, normocephalic, Extraocular movement intact. Pupils are reactive to light and accommodation. Neck: No JVP. No carotid bruit LUNGS: Diffuse wheezing in both lung, diminished BS right base, tubular sound CARDIAC: Tachycardic, normal S1 and S2. No murmur, gallops or rubs. ABDOMEN: Soft, nontender, nondistended, no HSM, + BS EXTREMITY: No edema, clubbing or cyanosis. ZENIA MATHEW 17, 2017 23:57
--- NOTE | 2016-07-01 23:59 | Cardiology Progress Note ---
Assessment/Plan Assessment/Plan The patient is seen and examined, full consult note will be dictated. Subjective Subjective No cardiac events. Objective Last 24 Hour Vital Signs Date Time Temp Pulse Resp B/P Pulse Ox O2 Delivery O2 Flow Rate FiO2 07/01/16 19:55 96.4 97 18 126/86 98 Room Air 07/01/16 19:51 98 18 99 Room Air 21 07/01/16 19:43 Room Air 07/01/16 19:43 97 Room Air 21 07/01/16 19:43 99 20 97 Room Air 21 07/01/16 15:45 97.5 95 21 122/68 99 Nasal Cannula 2.0 07/01/16 13:31 106 18 Nasal Cannula 2.0 07/01/16 13:20 103 20 98 Nasal Cannula 2.0 07/01/16 11:56 97.3 103 22 149/72 96 07/01/16 08:00 97.3 84 21 115/78 97 07/01/16 07:53 Nasal Cannula 07/01/16 07:52 Nasal Cannula 07/01/16 07:52 Nasal Cannula 2.0 07/01/16 07:51 98 Nasal Cannula 2.0 07/01/16 04:00 97.0 94 20 132/74 07/01/16 01:02 Nasal Cannula 2.0 07/01/16 01:02 Nasal Cannula 2.0 07/01/16 00:00 97.7 104 20 132/74 97 Nasal Cannula 2.0 Intake and Output 06/30/16 07/01/16 19:00 07:00 Intake Total 670 ml 275.000 ml Balance 670 ml 275.000 ml Intake Oral 620 ml IV Total 50 ml 275.000 ml # Voids 4 3 Laboratory Tests Test 07/01/16 04:50 White Blood Count 10.7 K/UL (4.8-10.8) Red Blood Count 5.07 M/UL (4.70-6.10) Hemoglobin 16.2 G/DL (14.2-18.0) Hematocrit 48.6 % (42.0-52.0) Mean Corpuscular Volume 96 FL (80-99) Mean Corpuscular Hemoglobin 32.0 PG (27.0-31.0) H Mean Corpuscular Hemoglobin Concent 33.4 G/DL (32.0-36.0) Red Cell Distribution Width 12.1 % (11.6-14.8) Platelet Count 302 K/UL (150-450) Mean Platelet Volume 6.2 FL (6.5-10.1) L Neutrophils (%) (Auto) 65.8 % (45.0-75.0) Lymphocytes (%) (Auto) 22.2 % (20.0-45.0) Monocytes (%) (Auto) 9.7 % (1.0-10.0) Eosinophils (%) (Auto) 1.1 % (0.0-3.0) Basophils (%) (Auto) 1.2 % (0.0-2.0) Sodium Level 139 mEQ/L (135-145) Potassium Level 4.0 mEQ/L (3.4-4.9) Chloride Level 99 mEQ/L (98-107) Carbon Dioxide Level 27 mEQ/L (20-30) Anion Gap 13 (5-15) Blood Urea Nitrogen 18 mg/dL (7-23) Creatinine 1.0 mg/dL (0.7-1.2) Estimat Glomerular Filtration Rate > 60 mL/min (>60) Glucose Level 108 mg/dL (74-106) H Calcium Level 9.1 mg/dL (8.6-10.2) Vancomycin Level Trough 9.0 ug/mL (5.0-12.0) Microbiology Date/Time Source Procedure Growth Status 06/29/16 17:55 Blood Blood Culture - Preliminary NO GROWTH AFTER 24 HOURS Resulted 06/29/16 17:55 Blood Blood Culture - Preliminary NO GROWTH AFTER 24 HOURS Resulted 06/30/16 21:30 Sputum Gram Stain - Final Resulted 06/30/16 21:30 Sputum Sputum Culture Pending Resulted ZENIA MATHEW July 01, 2016 23:59
[2016-07-02] VITALS: BP 124/80
[2016-07-02] MEDS: DuoNeb 0.5-3(2.5)mg/3ml neb HHN SCH ×4 (00:04→18:58)
[2016-07-02 04:00] VITALS: BP 115/74
[2016-07-02] MEDS: Solu-MEDROL 125mg Inj IVP SCH ×3 (05:10→18:01)
[2016-07-02] MEDS: Vancomycin 1250mg/D5W 275ml IVPB SCH ×6 (05:10→20:54)
[2016-07-02 07:56] VITALS: BP 128/75
[2016-07-02] MEDS: ALPRAZolam 0.5mg tab ORAL SCH ×2 (09:00→18:01)
[2016-07-02] MEDS: BuPROPion XL 150mg tab ORAL SCH (09:30)
[2016-07-02] MEDS: Docusate 100mg cap ORAL SCH ×2 (09:30→20:54)
--- NOTE | 2016-07-02 09:33 | General Progress Note ---
Assessment/Plan Status Narrative 1MRSA PNA 2.Asthma 3.anxiety 4.tachycardia 5 chronic cough Assessment/Plan PLAN start steroid ( ok with ID ) to continue breathing treatment iv anabiotic restart home meds fallow up with sputum culture Subjective Constitutional: Reports: malaise, weakness HEENT: Reports: no symptoms Cardiovascular: Reports: palpitations Respiratory: Reports: SOB at rest, cough, shortness of breath, sputum, wheezing Gastrointestinal/Abdominal: Reports: no symptoms Neurologic/Psychiatric: Reports: no symptoms Endocrine: Reports: no symptoms Allergies: Coded Allergies: HYDROMORPHONE (Verified Allergy, Unknown, 06/29/16) Subjective continue to have cough ct of chest was negative Objective Last 24 Hour Vital Signs Date Time Temp Pulse Resp B/P Pulse Ox O2 Delivery O2 Flow Rate FiO2 07/02/16 07:56 97.0 107 23 128/75 96 Room Air 07/02/16 07:10 97 20 100 Nasal Cannula 2.0 07/02/16 07:06 Nasal Cannula 2.0 07/02/16 07:06 98 Nasal Cannula 28 07/02/16 07:00 96 20 97 Nasal Cannula 2.0 07/02/16 04:00 97.3 94 18 115/74 96 Room Air 07/02/16 00:10 90 20 99 Nasal Cannula 2.0 28 07/02/16 00:00 97.3 95 18 124/80 99 Nasal Cannula 2.0 07/02/16 00:00 89 24 98 Nasal Cannula 2.0 28 07/01/16 19:55 96.4 97 18 126/86 98 Room Air 07/01/16 19:51 98 18 99 Room Air 21 07/01/16 19:43 Nasal Cannula 2.0 28 07/01/16 19:43 98 Nasal Cannula 2.0 28 07/01/16 19:43 99 20 97 Room Air 21 07/01/16 15:45 97.5 95 21 122/68 99 Nasal Cannula 2.0 07/01/16 13:31 106 18 Nasal Cannula 2.0 07/01/16 13:20 103 20 98 Nasal Cannula 2.0 07/01/16 11:56 97.3 103 22 149/72 96 Intake and Output 07/01/16 07/02/16 19:00 07:00 Intake Total 1200 ml 758.333 ml Balance 1200 ml 758.333 ml Intake Oral 1200 ml 250 ml IV Total 508.333 ml # Voids 2 Height (Feet): 6 Height (Inches): 0.00 Weight (Pounds): 173 Objective HEAD AND NECK: No JVP. No LAD. No thyromegaly. Extraocular movement intact. Pupils are reactive to light and accommodation. LUNGS: Diffuse wheezing in both lung. CARDIAC: Tachy S1 and S2. No murmur. No rub. ABDOMEN: Soft, nontender, and nondistended. EXTREMITY: No edema. No clubbing. No cyanosis. TOSIN MONSIVAIS July 02, 2016 09:33
[2016-07-02 11:46] VITALS: BP 126/76
--- NOTE | 2016-07-02 13:43 | Infectious Diseases Prog Note ---
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 Irving and Dr. Lu 6) may need midline or picc line 7) d/w patient, communicated with Dr. Irving Subjective Constitutional: Denies: fever HEENT: Reports: congestion - less Respiratory: Reports: shortness of breath - less Cardiovascular: Denies: chest pain Gastrointestinal/Abdominal: Denies: diarrhea, nausea, vomiting Genitourinary: Denies: dysuria Neurologic: Denies: headache Psychiatric: Denies: depression Skin: Denies: rash Hematologic: Denies: bleeding Musculoskeletal: Denies: pain Allergies: Coded Allergies: HYDROMORPHONE (Verified Allergy, Unknown, 06/29/16) Objective Vital Signs Last 24 Hour Vital Signs Date Time Temp Pulse Resp B/P Pulse Ox O2 Delivery O2 Flow Rate FiO2 07/02/16 12:12 102 18 100 Nasal Cannula 2.0 07/02/16 12:00 94 20 95 Nasal Cannula 2.0 07/02/16 11:46 97.9 95 21 126/76 99 Room Air 07/02/16 07:56 97.0 107 23 128/75 96 Room Air 07/02/16 07:10 97 20 100 Nasal Cannula 2.0 07/02/16 07:06 Nasal Cannula 2.0 07/02/16 07:06 98 Nasal Cannula 28 07/02/16 07:00 96 20 97 Nasal Cannula 2.0 07/02/16 04:00 97.3 94 18 115/74 96 Room Air 07/02/16 00:10 90 20 99 Nasal Cannula 2.0 28 07/02/16 00:00 97.3 95 18 124/80 99 Nasal Cannula 2.0 07/02/16 00:00 89 24 98 Nasal Cannula 2.0 28 07/01/16 19:55 96.4 97 18 126/86 98 Room Air 07/01/16 19:51 98 18 99 Room Air 21 07/01/16 19:43 Nasal Cannula 2.0 28 07/01/16 19:43 98 Nasal Cannula 2.0 28 07/01/16 19:43 99 20 97 Room Air 21 07/01/16 15:45 97.5 95 21 122/68 99 Nasal Cannula 2.0 07/01/16 13:31 106 18 Nasal Cannula 2.0 Height (Feet): 6 Height (Inches): 0.00 Weight (Pounds): 173 General Appearance: no acute distress HEENT: normocephalic, atraumatic, anicteric, mucous membranes moist, PERRL, EOMI, pharynx normal, supple, no JVD Respiratory/Chest: crackles/rales - less, rhonchi - bilaterally - less, other - less bilateral wheezing Cardiovascular: normal rate, regular rhythm, no gallop/murmur, no JVD Abdomen: normal bowel sounds, soft, non tender, no organomegaly, non distended , no mass Genitourinary: normal external genitalia Extremities: no cyanosis Skin: no rash 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 normal, alert, oriented x 3, responsive Lymphatic: no neck adenopathy Musculoskeletal: no effusion Objective chest x-ray - negative pna ct - negative pna (report noted) Microbiology Date/Time Source Procedure Growth Status 06/29/16 17:55 Blood Blood Culture - Preliminary NO GROWTH AFTER 48 HOURS Resulted 06/29/16 17:55 Blood Blood Culture - Preliminary NO GROWTH AFTER 48 HOURS Resulted 06/30/16 21:30 Sputum Gram Stain - Final Resulted 06/30/16 21:30 Sputum Culture - Preliminary Staphylococcus Aureus Resulted Labs Test 06/29/16 17:55 06/30/16 07:50 07/01/16 04:50 White Blood Count 13.6 K/UL (4.8-10.8) 10.2 K/UL (4.8-10.8) 10.7 K/UL (4.8-10.8) Red Blood Count 4.71 M/UL (4.70-6.10) 4.98 M/UL (4.70-6.10) 5.07 M/UL (4.70-6.10) Hemoglobin 16.7 G/DL (14.2-18.0) 15.7 G/DL (14.2-18.0) 16.2 G/DL (14.2-18.0) Hematocrit 44.8 % (42.0-52.0) 47.7 % (42.0-52.0) 48.6 % (42.0-52.0) Mean Corpuscular Volume 95 FL (80-99) 96 FL (80-99) 96 FL (80-99) Mean Corpuscular Hemoglobin 35.5 PG (27.0-31.0) 31.6 PG (27.0-31.0) 32.0 PG (27.0-31.0) Mean Corpuscular Hemoglobin Concent 37.3 G/DL (32.0-36.0) 33.0 G/DL (32.0-36.0) 33.4 G/DL (32.0-36.0) Red Cell Distribution Width 12.1 % (11.6-14.8) 12.6 % (11.6-14.8) 12.1 % (11.6-14.8) Platelet Count 284 K/UL (150-450) 310 K/UL (150-450) 302 K/UL (150-450) Mean Platelet Volume 5.8 FL (6.5-10.1) 5.9 FL (6.5-10.1) 6.2 FL (6.5-10.1) Neutrophils (%) (Auto) 79.1 % (45.0-75.0) 65.5 % (45.0-75.0) 65.8 % (45.0-75.0) Lymphocytes (%) (Auto) 12.7 % (20.0-45.0) 22.5 % (20.0-45.0) 22.2 % (20.0-45.0) Monocytes (%) (Auto) 7.4 % (1.0-10.0) 10.1 % (1.0-10.0) 9.7 % (1.0-10.0) Eosinophils (%) (Auto) 0.1 % (0.0-3.0) 0.9 % (0.0-3.0) 1.1 % (0.0-3.0) Basophils (%) (Auto) 0.8 % (0.0-2.0) 1.1 % (0.0-2.0) 1.2 % (0.0-2.0) Urine Color Pale yellow Urine Appearance Clear Urine pH 6 (4.5-8.0) Urine Specific Noti 1.005 (1.005-1.035) Urine Protein Negative (NEGATIVE) Urine Glucose (UA) Negative (NEGATIVE) Urine Ketones Negative (NEGATIVE) Urine Occult Blood Negative (NEGATIVE) Urine Nitrite Negative (NEGATIVE) Urine Bilirubin Negative (NEGATIVE) Urine Urobilinogen Normal MG/DL (0.0-1.0) Urine Leukocyte Esterase Negative (NEGATIVE) Sodium Level 136 mEQ/L (135-145) 140 mEQ/L (135-145) 139 mEQ/L (135-145) Potassium Level 4.2 mEQ/L (3.4-4.9) 4.2 mEQ/L (3.4-4.9) 4.0 mEQ/L (3.4-4.9) Chloride Level 93 mEQ/L (98-107) 100 mEQ/L (98-107) 99 mEQ/L (98-107) Carbon Dioxide Level 25 mEQ/L (20-30) 26 mEQ/L (20-30) 27 mEQ/L (20-30) Anion Gap 18 (5-15) 14 (5-15) 13 (5-15) Blood Urea Nitrogen 16 mg/dL (7-23) 14 mg/dL (7-23) 18 mg/dL (7-23) Creatinine 1.2 mg/dL (0.7-1.2) 1.1 mg/dL (0.7-1.2) 1.0 mg/dL (0.7-1.2) Estimat Glomerular Filtration Rate > 60 mL/min (>60) > 60 mL/min (>60) > 60 mL/min (>60) Glucose Level 110 mg/dL (74-106) 112 mg/dL (74-106) 108 mg/dL (74-106) Lactic Acid Level 0.70 mmol/L (0.66-2.22) Calcium Level 9.7 mg/dL (8.6-10.2) 9.4 mg/dL (8.6-10.2) 9.1 mg/dL (8.6-10.2) Total Bilirubin 0.4 mg/dL (0.0-1.2) Aspartate Amino Transf (AST/SGOT) 26 U/L (5-40) Alanine Aminotransferase (ALT/SGPT) 36 U/L (3-41) Alkaline Phosphatase 73 U/L (40-129) Total Protein 7.0 g/dL (6.6-8.7) Albumin 4.5 g/dL (3.5-5.2) Globulin 2.5 g/dL Albumin/Globulin Ratio 1.8 (1.0-2.7) Vancomycin Level Trough 9.0 ug/mL (5.0-12.0) Current Medications Medications (Trade) Dose Ordered Sig/Ben Route PRN Reason Start Time Stop Time Status Last Admin Dose Admin Acetaminophen (Tylenol) 650 mg Q6H PRN ORAL Mild Pain (Pain Scale 1-3) 06/29/16 21:45 07/29/16 21:44 Albuterol/ Ipratropium (DuoNeb 0.5-3(2.5)mg/3ml) 3 ml Q6HRT HHN 06/30/16 19:00 07/05/16 18:59 07/02/16 12:00 Alprazolam 1 mg 1 mg BID ORAL 07/01/16 09:00 07/08/16 08:59 07/01/16 17:54 Bupropion HCl (Wellbutrin XL) 300 mg DAILY ORAL 07/01/16 09:00 07/31/16 08:59 07/02/16 09:30 Dextrose (Dextrose 50%) STAT PRN IV Hypoglycemia 06/29/16 21:45 07/29/16 21:44 Docusate Sodium (Colace) 100 mg EVERY 12 HOURS ORAL 06/30/16 09:00 07/30/16 08:59 07/02/16 09:30 Methylprednisolone Sodium Succinate (Solu-MEDROL) 60 mg EVERY 6 HOURS IVP 07/02/16 06:00 08/01/16 05:59 07/02/16 11:50 Pantoprazole (Protonix) 40 mg DAILY ORAL 07/03/16 09:00 08/02/16 08:59 Promethazine HCl/ Codeine (Phenergan with Codeine) 5 ml Q4H PRN ORAL For Cough 06/30/16 15:45 07/30/16 15:44 Vancomycin HCl (Vanco rx to dose) 1 ea DAILY PRN MISC Per rx protocol 06/29/16 21:45 07/29/16 21:44 Vancomycin HCl/ Dextrose (Vancomycin/D5W) 275 ml @ 183.333 mls/hr Q8HR@0600,1400,2200 IVPB 07/01/16 14:00 07/06/16 13:59 07/02/16 05:10 Zolpidem Tartrate (Ambien) 5 mg HSPRN PRN ORAL Insomnia 06/29/16 21:45 07/29/16 21:44 CARMITA ORDONEZ July 02, 2016 13:43
[2016-07-02 15:52] VITALS: BP 123/79
--- NOTE | 2016-07-02 16:03 | Pulmonology Progress Note ---
Assessment/Plan Problems: (1) Purulent bronchitis (2) Persistent cough (3) Asthma (4) MRSA (methicillin resistant Staphylococcus aureus) infection Assessment/Plan sputum has staph, sensitivity pending Iv antibiotics check cultures CT chest reviewed. no abnormal findings check electrolytes dvt prophylaxis antitussives Subjective ROS Limited/Unobtainable: No - episodes of cough Allergies: Coded Allergies: HYDROMORPHONE (Verified Allergy, Unknown, 06/29/16) Objective Last 24 Hour Vital Signs Date Time Temp Pulse Resp B/P Pulse Ox O2 Delivery O2 Flow Rate FiO2 07/02/16 15:52 97.9 112 22 123/79 99 Room Air 07/02/16 12:12 102 18 100 Nasal Cannula 2.0 07/02/16 12:00 94 20 95 Nasal Cannula 2.0 07/02/16 11:46 97.9 95 21 126/76 99 Room Air 07/02/16 07:56 97.0 107 23 128/75 96 Room Air 07/02/16 07:10 97 20 100 Nasal Cannula 2.0 07/02/16 07:06 Nasal Cannula 2.0 07/02/16 07:06 98 Nasal Cannula 28 07/02/16 07:00 96 20 97 Nasal Cannula 2.0 07/02/16 04:00 97.3 94 18 115/74 96 Room Air 07/02/16 00:10 90 20 99 Nasal Cannula 2.0 28 07/02/16 00:00 97.3 95 18 124/80 99 Nasal Cannula 2.0 07/02/16 00:00 89 24 98 Nasal Cannula 2.0 28 07/01/16 19:55 96.4 97 18 126/86 98 Room Air 07/01/16 19:51 98 18 99 Room Air 21 07/01/16 19:43 Nasal Cannula 2.0 28 07/01/16 19:43 98 Nasal Cannula 2.0 28 07/01/16 19:43 99 20 97 Room Air 21 Intake and Output 07/01/16 07/02/16 19:00 07:00 Intake Total 1200 ml 758.333 ml Balance 1200 ml 758.333 ml Intake Oral 1200 ml 250 ml IV Total 508.333 ml # Voids 2 General Appearance: WD/WN HEENT: normocephalic Respiratory/Chest: chest wall non-tender, lungs clear, normal breath sounds Cardiovascular: normal peripheral pulses, normal rate, regular rhythm Abdomen: normal bowel sounds, soft, non tender, no organomegaly Genitourinary: normal external genitalia Extremities: no clubbing Skin: no rash 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 Lymphatic: no neck adenopathy Musculoskeletal: normal muscle bulk Microbiology Date/Time Source Procedure Growth Status 06/29/16 17:55 Blood Blood Culture - Preliminary NO GROWTH AFTER 48 HOURS Resulted 06/29/16 17:55 Blood Blood Culture - Preliminary NO GROWTH AFTER 48 HOURS Resulted 06/30/16 21:30 Sputum Gram Stain - Final Resulted 06/30/16 21:30 Sputum Culture - Preliminary Staphylococcus Aureus Resulted Current Medications Medications (Trade) Dose Ordered Sig/Ben Route PRN Reason Start Time Stop Time Status Last Admin Dose Admin Acetaminophen (Tylenol) 650 mg Q6H PRN ORAL Mild Pain (Pain Scale 1-3) 06/29/16 21:45 07/29/16 21:44 Albuterol/ Ipratropium (DuoNeb 0.5-3(2.5)mg/3ml) 3 ml Q6HRT HHN 06/30/16 19:00 07/05/16 18:59 07/02/16 12:00 Alprazolam 1 mg 1 mg BID ORAL 07/01/16 09:00 07/08/16 08:59 07/01/16 17:54 Bupropion HCl (Wellbutrin XL) 300 mg DAILY ORAL 07/01/16 09:00 07/31/16 08:59 07/02/16 09:30 Dextrose (Dextrose 50%) STAT PRN IV Hypoglycemia 06/29/16 21:45 07/29/16 21:44 Docusate Sodium (Colace) 100 mg EVERY 12 HOURS ORAL 06/30/16 09:00 07/30/16 08:59 07/02/16 09:30 Methylprednisolone Sodium Succinate (Solu-MEDROL) 60 mg EVERY 6 HOURS IVP 07/02/16 06:00 08/01/16 05:59 07/02/16 11:50 Pantoprazole (Protonix) 40 mg DAILY ORAL 07/03/16 09:00 08/02/16 08:59 Promethazine HCl/ Codeine (Phenergan with Codeine) 5 ml Q4H PRN ORAL For Cough 06/30/16 15:45 07/30/16 15:44 Valacyclovir HCl (Valtrex) 1,000 mg DAILY ORAL 07/03/16 09:00 08/02/16 08:59 Vancomycin HCl (Vanco rx to dose) 1 ea DAILY PRN MISC Per rx protocol 06/29/16 21:45 07/29/16 21:44 Vancomycin HCl/ Dextrose (Vancomycin/D5W) 275 ml @ 183.333 mls/hr Q8HR@0600,1400,2200 IVPB 07/01/16 14:00 07/06/16 13:59 07/02/16 13:42 Zolpidem Tartrate (Ambien) 5 mg HSPRN PRN ORAL Insomnia 06/29/16 21:45 07/29/16 21:44 VIDA GUTIERREZ July 02, 2016 16:03
[2016-07-02] MEDS ORDERED: methylPREDNISolone Sod Succ 500 MG in NS 110 ML IVPB SCH (18:00)
[2016-07-02] MEDS: Promethazine/Codeine 5ml UD ORAL PRN (18:01)
[2016-07-02 20:00] VITALS: BP 116/89
[2016-07-03] VITALS: BP 137/75
[2016-07-03] MEDS: Solu-MEDROL 125mg Inj IVP SCH ×2 (00:05→05:35)
[2016-07-03] MEDS: DuoNeb 0.5-3(2.5)mg/3ml neb HHN SCH ×5 (00:07→23:11)
[2016-07-03 04:00] VITALS: BP 135/86
[2016-07-03] MEDS: Vancomycin 1250mg/D5W 275ml IVPB SCH ×6 (05:35→21:10)
[2016-07-03 07:26] LABS: MEAN CORPUSCULAR HEMOGLOBIN 32.2 PG (27.0-31.0); MEAN CORPUSCULAR HGB CONC 33.7 G/DL (32.0-36.0); MEAN CORPUSCULAR VOLUME 96 FL (80-99); MEAN PLATELET VOLUME 6.1 FL (6.5-10.1); PLATELET COUNT 314 K/UL (150-450); RED BLOOD COUNT 4.84 M/UL (4.70-6.10); RED CELL DISTRIBUTION WIDTH 12.2 % (11.6-14.8)
[2016-07-03 07:35] LABS: WHITE BLOOD COUNT 23.5 K/UL (4.8-10.8)
[2016-07-03 07:54] LABS: ANION GAP 14 (5-15); CALCIUM 9.7 mg/dL (8.6-10.2); CARBON DIOXIDE 26 mEQ/L (20-30); CHLORIDE 96 mEQ/L (98-107); CREATININE 0.9 mg/dL (0.7-1.2); GLOMERULAR FILTRATION RATE > 60 mL/min (>60); HEMOLYSIS 8; POTASSIUM 4.1 mEQ/L (3.4-4.9); SODIUM 136 mEQ/L (135-145)
[2016-07-03 08:00] VITALS: BP 144/87
[2016-07-03] MEDS: BuPROPion XL 150mg tab ORAL SCH (08:26)
[2016-07-03] MEDS: Promethazine/Codeine 5ml UD ORAL PRN (08:26)
[2016-07-03] MEDS: ALPRAZolam 0.5mg tab ORAL SCH ×2 (08:27→17:55)
[2016-07-03] MEDS: Docusate 100mg cap ORAL SCH ×2 (08:27→21:10)
--- NOTE | 2016-07-03 08:30 | Pulmonology Progress Note ---
Assessment/Plan Assessment/Plan ASSESSMENT persistent chronic cough possible asthma exacerbation MRSA sputum URI vs chronic bronchitis possible PNA anxiety hx of smoking hx of Aspergillosis, s/p Rx Hx of HSV PLAN OF CARE [facility] floor O2 HHN prn sputum cx with MRSA, blood cx preliminary negative CXR negative CT chest negative, no evidence of acute pathology leukocytosis likely reactive 2 to steroids( steroids started 07/02, and this am, 07/03 with leucocytosis) taper steroids and dc soon antitussive prn consider allergy test as outpatient as a possible cause for chronic cough abx ID follows GI prophylaxis Valtrex for chronic suppression will need abx on discharge - per ID recommendations ( Bactrim did not work) case discussed and evaluated by supervising physician Subjective Allergies: Coded Allergies: HYDROMORPHONE (Verified Allergy, Unknown, 06/29/16) Subjective leukocytosis today ( initial leukocytosis prior resolved), afebrile started 07/02 on steroids denies chest pain, SOB on RA sat stable sputum cx back with [facility] again Objective Last 24 Hour Vital Signs Date Time Temp Pulse Resp B/P Pulse Ox O2 Delivery O2 Flow Rate FiO2 07/03/16 08:00 97.7 96 20 144/87 98 Room Air 07/03/16 04:00 97.2 106 18 135/86 96 Room Air 07/03/16 00:09 Room Air 07/03/16 00:07 Room Air 07/03/16 00:00 97.5 104 18 137/75 97 Nasal Cannula 07/02/16 20:00 98.2 119 18 116/89 93 Room Air 07/02/16 19:23 106 18 100 Nasal Cannula 2.0 07/02/16 18:58 95 Room Air 07/02/16 18:58 Room Air 07/02/16 18:58 106 20 95 Room Air 07/02/16 15:52 97.9 112 22 123/79 99 Room Air 07/02/16 12:12 102 18 100 Nasal Cannula 2.0 07/02/16 12:00 94 20 95 Nasal Cannula 2.0 07/02/16 11:46 97.9 95 21 126/76 99 Room Air Intake and Output 07/02/16 07/03/16 19:00 07:00 Intake Total 1435.000 ml 725 ml Output Total 650 ml Balance 785.000 ml 725 ml Intake Oral 1160 ml 450 ml IV Total 275.000 ml 275 ml Output Urine Total 650 ml # Voids 2 2 General Appearance: WD/WN, no acute distress HEENT: anicteric, mucous membranes moist, PERRL Respiratory/Chest: chest wall non-tender, expiratory wheezing Cardiovascular: normal peripheral pulses, normal rate, no JVD Abdomen: normal bowel sounds, soft, non tender, non distended Genitourinary: normal external genitalia Extremities: no edema, pedal pulses normal Neurologic/Psychiatric: no motor/sensory deficits, alert, oriented x 3, responsive Musculoskeletal: normal muscle bulk Microbiology Date/Time Source Procedure Growth Status 06/30/16 21:30 Sputum Gram Stain - Final Resulted 06/30/16 21:30 Sputum Culture - Preliminary Staphylococcus Aureus Resulted Laboratory Tests 07/03/16 06:50: White Blood Count 23.5*H, Red Blood Count 4.84, Hemoglobin 15.6, Hematocrit 46.4 , Mean Corpuscular Volume 96, Mean Corpuscular Hemoglobin 32.2H, Mean Corpuscular Hemoglobin Concent 33.7, Red Cell Distribution Width 12.2, Platelet Count 314, Mean Platelet Volume 6.1L, Neutrophils (%) (Auto) , Lymphocytes (%) ( Auto) , Monocytes (%) (Auto) , Eosinophils (%) (Auto) , Basophils (%) (Auto) , Neutrophils % (Manual) [Pending], Lymphocytes % (Manual) [Pending], Platelet Estimate [Pending], Platelet Morphology [Pending], Sodium Level 136, Potassium Level 4.1, Chloride Level 96L, Carbon Dioxide Level 26, Anion Gap 14, Blood Urea Nitrogen 18, Creatinine 0.9, Estimat Glomerular Filtration Rate > 60, Glucose Level 152H, Calcium Level 9.7 Current Medications Medications (Trade) Dose Ordered Sig/Ben Route PRN Reason Start Time Stop Time Status Last Admin Dose Admin Acetaminophen (Tylenol) 650 mg Q6H PRN ORAL Mild Pain (Pain Scale 1-3) 06/29/16 21:45 07/29/16 21:44 Albuterol/ Ipratropium (DuoNeb 0.5-3(2.5)mg/3ml) 3 ml Q6HRT HHN 06/30/16 19:00 07/05/16 18:59 07/03/16 07:31 Alprazolam 1 mg 1 mg BID ORAL 07/01/16 09:00 07/08/16 08:59 07/02/16 18:01 Bupropion HCl (Wellbutrin XL) 300 mg DAILY ORAL 07/01/16 09:00 07/31/16 08:59 07/02/16 09:30 Dextrose (Dextrose 50%) STAT PRN IV Hypoglycemia 06/29/16 21:45 07/29/16 21:44 Docusate Sodium (Colace) 100 mg EVERY 12 HOURS ORAL 06/30/16 09:00 07/30/16 08:59 07/02/16 20:54 Methylprednisolone Sodium Succinate (Solu-MEDROL) 60 mg EVERY 6 HOURS IVP 07/02/16 06:00 08/01/16 05:59 07/03/16 05:35 Pantoprazole (Protonix) 40 mg DAILY ORAL 07/03/16 09:00 08/02/16 08:59 Promethazine HCl/ Codeine (Phenergan with Codeine) 5 ml Q4H PRN ORAL For Cough 06/30/16 15:45 07/30/16 15:44 07/02/16 18:01 Valacyclovir HCl (Valtrex) 1,000 mg DAILY ORAL 07/03/16 09:00 08/02/16 08:59 Vancomycin HCl (Vanco rx to dose) 1 ea DAILY PRN MISC Per rx protocol 06/29/16 21:45 07/29/16 21:44 Vancomycin HCl/ Dextrose (Vancomycin/D5W) 275 ml @ 183.333 mls/hr Q8HR@0600,1400,2200 IVPB 07/01/16 14:00 07/06/16 13:59 07/03/16 05:35 Zolpidem Tartrate (Ambien) 5 mg HSPRN PRN ORAL Insomnia 06/29/16 21:45 07/29/16 21:44 07/03/16 00:05 Que (Brendon)Susie NP July 03, 2016 08:30
[2016-07-03] MEDS ORDERED: NS 275ml ONE (09:48)
[2016-07-03] MEDS ORDERED: Tubing IV Secondary IV ONE (09:48)
[2016-07-03 10:47] LABS: BAND NEUTROPHILS % (MANUAL) 1 % (0-8); BASOPHILS % (MANUAL) 0 % (0-2); EOSINOPHILS % (MANUAL) 0 % (0-3); LYMPHOCYTES % (MANUAL) 4 % (20-45); NEUTROPHILS % (MANUAL) 91 % (45-75); PLATELET ESTIMATE ADEQUATE; PLATELET MORPHOLOGY NORMAL; TOTAL CELLS COUNTED 100
[2016-07-03 11:59] VITALS: BP 151/89
[2016-07-03] MEDS ORDERED: Heparin 2000 units/Ns 1000ml INJ ONE (13:45)
[2016-07-03] MEDS ORDERED: Lidocaine 1% Plain 30 ml INJ ONE (13:45)
[2016-07-03] MEDS ORDERED: Sodium Bicarbonate 4% 2.4meq/5ml vial INJ ONE (13:45)
--- NOTE | 2016-07-03 13:46 | Infectious Diseases Prog Note ---
Assessment/Plan Assessment/Plan A) 1) mrsa respiratory infection/uri/bronchitis - clinically improving, less congested, less sob 2) ct negative for pna, leukocytosis likely secondary to steroids 3) hx asthma, on herpes suppression with valtrex, hx aspergillosis that was treated in the past, pmh o/w negative, on prep with Truvada 4) sh-past smoker, fh-nc 5) allergies - hydromorphone 6) notes and records reviewed 7) d/w RN P) 1) vancomycin - day # 4 (plan on 10 treatment course, cannot give zyvox secondary to wellbutrin drug interaction 2) on steroids, watch labs 3) continue treatment per primary and consultants 4) orders entered and noted 5) continue treatment per Dr. Irving and Dr. Lu 6) patient with multiple iv's - favor midline or picc line, midline not available at [facility], will order picc line 7) d/w patient, d/w Dr. Irving Subjective Constitutional: Reports: other - less sob, Denies: fever HEENT: Reports: congestion - less Respiratory: Reports: shortness of breath - less Cardiovascular: Denies: chest pain Gastrointestinal/Abdominal: Denies: diarrhea, nausea, vomiting Neurologic: Denies: headache Psychiatric: Denies: depression Skin: Denies: rash Allergies: Coded Allergies: HYDROMORPHONE (Verified Allergy, Unknown, 06/29/16) Objective Vital Signs Last 24 Hour Vital Signs Date Time Temp Pulse Resp B/P Pulse Ox O2 Delivery O2 Flow Rate FiO2 07/03/16 12:20 100 20 100 Room Air 07/03/16 12:15 98 20 97 Room Air 07/03/16 11:59 97.3 107 20 151/89 97 Room Air 07/03/16 08:00 97.7 96 20 144/87 98 Room Air 07/03/16 07:05 97 20 100 Room Air 07/03/16 07:00 96 20 97 Room Air 07/03/16 07:00 97 Room Air 21 07/03/16 07:00 Room Air 07/03/16 04:00 97.2 106 18 135/86 96 Room Air 07/03/16 00:09 Room Air 07/03/16 00:07 Room Air 07/03/16 00:00 97.5 104 18 137/75 97 Nasal Cannula 07/02/16 20:00 98.2 119 18 116/89 93 Room Air 07/02/16 19:23 106 18 100 Nasal Cannula 2.0 07/02/16 18:58 95 Room Air 07/02/16 18:58 Room Air 07/02/16 18:58 106 20 95 Room Air 07/02/16 15:52 97.9 112 22 123/79 99 Room Air Height (Feet): 6 Height (Inches): 0.00 Weight (Pounds): 173 General Appearance: no acute distress, other HEENT: normocephalic, atraumatic, anicteric, mucous membranes moist, EOMI, pharynx normal, supple, no JVD Respiratory/Chest: crackles/rales - less, rhonchi - bilaterally - less, other - less Cardiovascular: normal rate, regular rhythm, no gallop/murmur, no JVD Abdomen: normal bowel sounds, soft, non tender, no organomegaly, non distended Genitourinary: other - no de [place]re Extremities: no cyanosis Skin: no rash 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, alert, oriented x 3 Lymphatic: no neck adenopathy Musculoskeletal: no effusion Objective chest x-ray - negative pna ct - negative pna (report noted) Microbiology Date/Time Source Procedure Growth Status 06/30/16 21:30 Sputum Gram Stain - Final Complete 06/30/16 21:30 Sputum Culture - Final Staphylococcus Aureus - Mrsa Usual Upper Respiratory Lou Complete Laboratory Tests Test 07/03/16 06:50 White Blood Count 23.5 K/UL (4.8-10.8) *H Red Blood Count 4.84 M/UL (4.70-6.10) Hemoglobin 15.6 G/DL (14.2-18.0) Hematocrit 46.4 % (42.0-52.0) Mean Corpuscular Volume 96 FL (80-99) Mean Corpuscular Hemoglobin 32.2 PG (27.0-31.0) H Mean Corpuscular Hemoglobin Concent 33.7 G/DL (32.0-36.0) Red Cell Distribution Width 12.2 % (11.6-14.8) Platelet Count 314 K/UL (150-450) Mean Platelet Volume 6.1 FL (6.5-10.1) L Neutrophils (%) (Auto) % (45.0-75.0) Lymphocytes (%) (Auto) % (20.0-45.0) Monocytes (%) (Auto) % (1.0-10.0) Eosinophils (%) (Auto) % (0.0-3.0) Basophils (%) (Auto) % (0.0-2.0) Differential Total Cells Counted 100 Neutrophils % (Manual) 91 % (45-75) H Lymphocytes % (Manual) 4 % (20-45) L Monocytes % (Manual) 4 % (1-10) Eosinophils % (Manual) 0 % (0-3) Basophils % (Manual) 0 % (0-2) Band Neutrophils 1 % (0-8) Platelet Estimate Adequate Platelet Morphology Normal Red Blood Cell Morphology Normal Sodium Level 136 mEQ/L (135-145) Potassium Level 4.1 mEQ/L (3.4-4.9) Chloride Level 96 mEQ/L (98-107) L Carbon Dioxide Level 26 mEQ/L (20-30) Anion Gap 14 (5-15) Blood Urea Nitrogen 18 mg/dL (7-23) Creatinine 0.9 mg/dL (0.7-1.2) Estimat Glomerular Filtration Rate > 60 mL/min (>60) Glucose Level 152 mg/dL (74-106) H Calcium Level 9.7 mg/dL (8.6-10.2) Current Medications Medications (Trade) Dose Ordered Sig/Ben Route PRN Reason Start Time Stop Time Status Last Admin Dose Admin Acetaminophen (Tylenol) 650 mg Q6H PRN ORAL Mild Pain (Pain Scale 1-3) 06/29/16 21:45 07/29/16 21:44 Albuterol/ Ipratropium (DuoNeb 0.5-3(2.5)mg/3ml) 3 ml Q6HRT HHN 06/30/16 19:00 07/05/16 18:59 07/03/16 12:07 Alprazolam 1 mg 1 mg BID ORAL 07/01/16 09:00 07/08/16 08:59 07/02/16 18:01 Bupropion HCl (Wellbutrin XL) 300 mg DAILY ORAL 07/01/16 09:00 07/31/16 08:59 07/03/16 08:26 Dextrose (Dextrose 50%) STAT PRN IV Hypoglycemia 06/29/16 21:45 07/29/16 21:44 Docusate Sodium (Colace) 100 mg EVERY 12 HOURS ORAL 06/30/16 09:00 07/30/16 08:59 07/03/16 08:27 Methylprednisolone Sodium Succinate (Solu-MEDROL) 60 mg EVERY 12 HOURS IVP 07/03/16 21:00 08/02/16 20:59 Pantoprazole (Protonix) 40 mg DAILY ORAL 07/03/16 09:00 08/02/16 08:59 07/03/16 08:26 Promethazine HCl/ Codeine (Phenergan with Codeine) 5 ml Q4H PRN ORAL For Cough 06/30/16 15:45 07/30/16 15:44 07/03/16 08:26 Valacyclovir HCl (Valtrex) 1,000 mg DAILY ORAL 07/03/16 09:00 08/02/16 08:59 Vancomycin HCl (Vanco rx to dose) 1 ea DAILY PRN MISC Per rx protocol 06/29/16 21:45 07/29/16 21:44 Vancomycin HCl/ Dextrose (Vancomycin/D5W) 275 ml @ 183.333 mls/hr Q8HR@0600,1400,2200 IVPB 07/01/16 14:00 07/06/16 13:59 07/03/16 05:35 Zolpidem Tartrate (Ambien) 5 mg HSPRN PRN ORAL Insomnia 06/29/16 21:45 07/29/16 21:44 07/03/16 00:05 CARMITA ORDONEZ July 03, 2016 13:46
[2016-07-03 16:00] VITALS: BP 134/92
[2016-07-03 20:00] VITALS: BP 141/94
[2016-07-03] MEDS ORDERED: Solu-MEDROL 125mg Inj IVP SCH (21:00)
[2016-07-03] MEDS ORDERED: DuoNeb 0.5-3(2.5)mg/3ml neb HHN SCH (21:00)
--- NOTE | 2016-07-03 22:47 | General Progress Note ---
Assessment/Plan Assessment/Plan PLAN start steroid ( ok with ID ) to continue breathing treatment iv anabiotic restart home meds fallow up with sputum culture Subjective Constitutional: Reports: malaise, no symptoms, weakness HEENT: Reports: no symptoms Respiratory: Reports: cough, shortness of breath Gastrointestinal/Abdominal: Reports: no symptoms Neurologic/Psychiatric: Reports: no symptoms Endocrine: Reports: no symptoms Hematologic/Lymphatic: Reports: no symptoms Allergies: Coded Allergies: HYDROMORPHONE (Verified Allergy, Unknown, 06/29/16) Subjective continue to have cough Objective Last 24 Hour Vital Signs Date Time Temp Pulse Resp B/P Pulse Ox O2 Delivery O2 Flow Rate FiO2 07/03/16 20:00 97.7 103 20 141/94 97 Room Air 07/03/16 18:33 98 20 100 Nasal Cannula 2.0 28 07/03/16 18:32 97 Nasal Cannula 2.0 28 07/03/16 18:32 Nasal Cannula 2.0 28 07/03/16 18:28 94 20 97 Nasal Cannula 2.0 28 07/03/16 16:00 97.9 108 20 134/92 95 Room Air 07/03/16 12:20 100 20 100 Room Air 07/03/16 12:15 98 20 97 Room Air 21 07/03/16 11:59 97.3 107 20 151/89 97 Room Air 07/03/16 08:00 97.7 96 20 144/87 98 Room Air 07/03/16 07:05 97 20 100 Room Air 07/03/16 07:00 96 20 97 Room Air 21 07/03/16 07:00 97 Room Air 21 07/03/16 07:00 Room Air 07/03/16 04:00 97.2 106 18 135/86 96 Room Air 07/03/16 00:09 Room Air 07/03/16 00:07 Room Air 07/03/16 00:00 97.5 104 18 137/75 97 Nasal Cannula Intake and Output 07/02/16 07/03/16 19:00 07:00 Intake Total 1435.000 ml 725 ml Output Total 650 ml Balance 785.000 ml 725 ml Intake Oral 1160 ml 450 ml IV Total 275.000 ml 275 ml Output Urine Total 650 ml # Voids 2 2 Laboratory Tests 07/03/16 06:50: White Blood Count 23.5*H, Red Blood Count 4.84, Hemoglobin 15.6, Hematocrit 46.4 , Mean Corpuscular Volume 96, Mean Corpuscular Hemoglobin 32.2H, Mean Corpuscular Hemoglobin Concent 33.7, Red Cell Distribution Width 12.2, Platelet Count 314, Mean Platelet Volume 6.1L, Neutrophils (%) (Auto) , Lymphocytes (%) ( Auto) , Monocytes (%) (Auto) , Eosinophils (%) (Auto) , Basophils (%) (Auto) , Differential Total Cells Counted 100, Neutrophils % (Manual) 91H, Lymphocytes % (Manual) 4L, Monocytes % (Manual) 4, Eosinophils % (Manual) 0, Basophils % ( Manual) 0, Band Neutrophils 1, Platelet Estimate Adequate, Platelet Morphology Normal, Red Blood Cell Morphology Normal, Sodium Level 136, Potassium Level 4.1 , Chloride Level 96L, Carbon Dioxide Level 26, Anion Gap 14, Blood Urea Nitrogen 18, Creatinine 0.9, Estimat Glomerular Filtration Rate > 60, Glucose Level 152H, Calcium Level 9.7 Height (Feet): 6 Height (Inches): 0.00 Weight (Pounds): 173 Objective HEAD AND NECK: No JVP. No LAD. No thyromegaly. Extraocular movement intact. Pupils are reactive to light and accommodation. LUNGS: Diffuse wheezing in both lung. CARDIAC: Tachy S1 and S2. No murmur. No rub. ABDOMEN: Soft, nontender, and nondistended. EXTREMITY: No edema. No clubbing. No cyanosis. TOSIN MONSIVAIS July 03, 2016 22:47
[2016-07-04] MEDS: DuoNeb 0.5-3(2.5)mg/3ml neb HHN SCH ×6 (03:07→23:38)
[2016-07-04 04:00] VITALS: BP 139/82
[2016-07-04] MEDS: Vancomycin 1250mg/D5W 275ml IVPB SCH ×6 (06:02→21:11)
[2016-07-04 06:39] LABS: BASOPHILS % (AUTO) 0.8 % (0.0-2.0); EOSINOPHILS % (AUTO) 0.1 % (0.0-3.0); LYMPHOCYTES % (AUTO) 14.3 % (20.0-45.0); MEAN CORPUSCULAR HEMOGLOBIN 32.6 PG (27.0-31.0); MEAN CORPUSCULAR HGB CONC 33.5 G/DL (32.0-36.0); MEAN CORPUSCULAR VOLUME 97 FL (80-99); MEAN PLATELET VOLUME 6.8 FL (6.5-10.1); MONOCYTES % (AUTO) 9.5 % (1.0-10.0); NEUTROPHILS % (AUTO) 75.3 % (45.0-75.0); PLATELET COUNT 222 K/UL (150-450); RED BLOOD COUNT 4.35 M/UL (4.70-6.10); RED CELL DISTRIBUTION WIDTH 12.6 % (11.6-14.8); WHITE BLOOD COUNT 13.5 K/UL (4.8-10.8)
[2016-07-04 06:48] LABS: ANION GAP 13 (5-15); CALCIUM 9.2 mg/dL (8.6-10.2); CARBON DIOXIDE 30 mEQ/L (20-30); CHLORIDE 100 mEQ/L (98-107); CREATININE 0.9 mg/dL (0.7-1.2); GLOMERULAR FILTRATION RATE > 60 mL/min (>60); HEMOLYSIS 7; POTASSIUM 3.7 mEQ/L (3.4-4.9); SODIUM 143 mEQ/L (135-145)
[2016-07-04 08:57] VITALS: BP 122/69
[2016-07-04] MEDS: ALPRAZolam 0.5mg tab ORAL SCH ×2 (09:00→18:52)
[2016-07-04] MEDS ORDERED: Solu-MEDROL 125mg Inj IVP SCH (09:00)
[2016-07-04] MEDS: BuPROPion XL 150mg tab ORAL SCH (09:02)
[2016-07-04] MEDS: Docusate 100mg cap ORAL SCH ×2 (09:03→21:10)
[2016-07-04] MEDS: Dyna-Hex 2% Top Sol 8oz TOPIC SCH (09:04)
[2016-07-04] MEDS ORDERED: Miralax 17gm pkt ORAL PRN (11:45)
[2016-07-04 11:50] VITALS: BP 136/94
--- NOTE | 2016-07-04 12:50 | Pulmonology Progress Note ---
Assessment/Plan Assessment/Plan ASSESSMENT persistent chronic cough possible asthma exacerbation MRSA sputum URI vs chronic bronchitis possible PNA anxiety hx of smoking hx of Aspergillosis, s/p Rx Hx of HSV PLAN OF CARE [facility] floor O2 HHN prn sputum cx with MRSA, blood cx preliminary negative CXR negative CT chest negative, no evidence of acute pathology leukocytosis likely reactive 2 to steroids( steroids started 07/02, and this am, 07/03 with leucocytosis) taper steroids and change to oral in am antitussive prn consider allergy test as outpatient as a possible cause for chronic cough abx ID follows PICC placed need HH for IV abx to be arranged ( in progress) GI prophylaxis Valtrex for chronic suppression dc plan as per PMD, plan for tomorrow with HH for IV abx ( duration per ID recommendation) pulmo will provide steroid script upon discharge case discussed and evaluated by supervising physician Subjective Allergies: Coded Allergies: HYDROMORPHONE (Verified Allergy, Unknown, 06/29/16) Subjective leukocytosis trending down , afebrile denies chest pain, chest tightness and wheezing still but decreasing on RA sat stable sputum cx + MPSA Objective Last 24 Hour Vital Signs Date Time Temp Pulse Resp B/P Pulse Ox O2 Delivery O2 Flow Rate FiO2 07/04/16 11:50 97.5 109 20 136/94 95 Room Air 07/04/16 09:33 98 20 99 Room Air 07/04/16 09:23 90 20 96 Room Air 21 07/04/16 09:23 96 Room Air 21 07/04/16 09:23 Room Air 07/04/16 08:57 97.0 98 20 122/69 96 Room Air 07/04/16 04:00 97.0 70 20 139/82 96 Nasal Cannula 2.0 07/04/16 03:14 93 18 99 Nasal Cannula 2.0 28 07/04/16 03:08 90 18 99 Nasal Cannula 2.0 28 07/04/16 00:00 98.0 63 18 Room Air 07/03/16 23:19 110 20 99 Room Air 07/03/16 23:11 102 20 98 Room Air 07/03/16 20:00 97.7 103 20 141/94 97 Room Air 07/03/16 18:33 98 20 100 Nasal Cannula 2.0 28 07/03/16 18:32 97 Nasal Cannula 2.0 28 07/03/16 18:32 Nasal Cannula 2.0 28 07/03/16 18:28 94 20 97 Nasal Cannula 2.0 28 07/03/16 16:00 97.9 108 20 134/92 95 Room Air Intake and Output 07/03/16 07/04/16 19:00 07:00 Intake Total 1115.000 ml 1166.666 ml Output Total 1200 ml Balance 1115.000 ml -33.334 ml Intake Oral 840 ml 800 ml IV Total 275.000 ml 366.666 ml Output Urine Total 1200 ml # Voids 5 4 # Bowel Movements 1 Objective General Appearance: WD/WN, no acute distress HEENT: anicteric, mucous membranes moist, PERRL Respiratory/Chest: chest wall non-tender, isolated expiratory wheezes posterior rosado Cardiovascular: normal peripheral pulses, normal rate, no JVD, LUE PICC intact Abdomen: normal bowel sounds, soft, non tender, non distended Genitourinary: normal external genitalia Extremities: no edema, pedal pulses normal Neurologic/Psychiatric: no motor/sensory deficits, alert, oriented x 3, responsive Musculoskeletal: normal muscle bulk Laboratory Tests 07/04/16 05:20: White Blood Count 13.5H, Red Blood Count 4.35L, Hemoglobin 14.2, Hematocrit 42.3 , Mean Corpuscular Volume 97, Mean Corpuscular Hemoglobin 32.6H, Mean Corpuscular Hemoglobin Concent 33.5, Red Cell Distribution Width 12.6, Platelet Count 222, Mean Platelet Volume 6.8, Neutrophils (%) (Auto) 75.3H, Lymphocytes ( %) (Auto) 14.3L, Monocytes (%) (Auto) 9.5, Eosinophils (%) (Auto) 0.1, Basophils (%) (Auto) 0.8, Sodium Level 143, Potassium Level 3.7, Chloride Level 100, Carbon Dioxide Level 30, Anion Gap 13, Blood Urea Nitrogen 15, Creatinine 0.9, Estimat Glomerular Filtration Rate > 60, Glucose Level 109H, Calcium Level 9.2 Current Medications Medications (Trade) Dose Ordered Sig/Ben Route PRN Reason Start Time Stop Time Status Last Admin Dose Admin Acetaminophen (Tylenol) 650 mg Q6H PRN ORAL Mild Pain (Pain Scale 1-3) 06/29/16 21:45 07/29/16 21:44 Albuterol/ Ipratropium (DuoNeb 0.5-3(2.5)mg/3ml) 3 ml Q4HRT HHN 07/03/16 23:00 07/08/16 22:59 07/04/16 09:22 Alprazolam 1 mg 1 mg BID ORAL 07/01/16 09:00 07/08/16 08:59 07/03/16 17:55 Bupropion HCl (Wellbutrin XL) 300 mg DAILY ORAL 07/01/16 09:00 07/31/16 08:59 07/04/16 09:02 Chlorhexidine Gluconate (Penny-Hex 2%) 1 applic DAILY TOPIC 07/04/16 09:00 08/03/16 08:59 07/04/16 09:04 Dextrose (Dextrose 50%) STAT PRN IV Hypoglycemia 06/29/16 21:45 07/29/16 21:44 Docusate Sodium (Colace) 100 mg EVERY 12 HOURS ORAL 06/30/16 09:00 07/30/16 08:59 07/04/16 09:03 Methylprednisolone Sodium Succinate (Solu-MEDROL) 60 mg DAILY IVP 07/04/16 09:00 08/03/16 08:59 07/04/16 09:03 Mupirocin (Bactroban Oint) 1 applic EVERY 12 HOURS TOPIC 07/03/16 15:00 07/08/16 14:59 07/04/16 09:03 Pantoprazole (Protonix) 40 mg ACBREAKFAST ORAL 07/04/16 06:30 08/02/16 08:59 07/04/16 06:02 Polyethylene Glycol (Miralax) 17 gm DAILYPRN PRN ORAL Constipation 07/04/16 11:45 08/03/16 11:44 Promethazine HCl/ Codeine (Phenergan with Codeine) 5 ml Q4H PRN ORAL For Cough 06/30/16 15:45 07/30/16 15:44 07/03/16 08:26 Valacyclovir HCl (Valtrex) 1,000 mg DAILY ORAL 07/03/16 09:00 08/02/16 08:59 Vancomycin HCl (Vanco rx to dose) 1 ea DAILY PRN MISC Per rx protocol 06/29/16 21:45 07/29/16 21:44 Vancomycin HCl/ Dextrose (Vancomycin/D5W) 275 ml @ 183.333 mls/hr Q8HR@0600,1400,2200 IVPB 07/01/16 14:00 07/09/16 23:05 07/04/16 06:02 Zolpidem Tartrate (Ambien) 5 mg HSPRN PRN ORAL Insomnia 06/29/16 21:45 07/29/16 21:44 07/03/16 00:05 Que (Brendon)Susie NP July 04, 2016 12:50
--- NOTE | 2016-07-04 13:23 | Infectious Diseases Prog Note ---
Assessment/Plan Assessment/Plan A) 1) mrsa respiratory infection/uri/bronchitis - clinically improving, less congested, less sob 2) ct negative for pna, leukocytosis likely secondary to steroids and improved 3) hx asthma, on herpes suppression with valtrex, hx aspergillosis that was treated in the past, pmh o/w negative, on prep with Truvada 4) sh-past smoker, fh-nc 5) allergies - hydromorphone 6) notes and records reviewed 7) d/w RN P) 1) vancomycin - day # 5 (plan on at least10 day treatment course, cannot give zyvox secondary to wellbutrin drug interaction) 2) on steroids, watch labs 3) continue treatment per primary and consultants 4) orders entered and noted 5) continue treatment per Dr. Irving and Dr. Lu 6) patient with multiple iv's - favor midline or picc line, midline not available at [place], will order picc line 7) d/w patient, d/w Dr. Irving, d/w Subjective Constitutional: Denies: fever HEENT: Reports: congestion - overall less Respiratory: Reports: shortness of breath - overall less Cardiovascular: Denies: chest pain Gastrointestinal/Abdominal: Denies: nausea, vomiting Genitourinary: Denies: dysuria Neurologic: Denies: headache Psychiatric: Denies: depression Skin: Denies: rash Hematologic: Denies: bleeding Musculoskeletal: Denies: pain Allergies: Coded Allergies: HYDROMORPHONE (Verified Allergy, Unknown, 06/29/16) Objective Vital Signs Last 24 Hour Vital Signs Date Time Temp Pulse Resp B/P Pulse Ox O2 Delivery O2 Flow Rate FiO2 07/04/16 11:50 97.5 109 20 136/94 95 Room Air 07/04/16 09:33 98 20 99 Room Air 07/04/16 09:23 90 20 96 Room Air 21 07/04/16 09:23 96 Room Air 21 07/04/16 09:23 Room Air 07/04/16 08:57 97.0 98 20 122/69 96 Room Air 07/04/16 04:00 97.0 70 20 139/82 96 Nasal Cannula 2.0 07/04/16 03:14 93 18 99 Nasal Cannula 2.0 28 07/04/16 03:08 90 18 99 Nasal Cannula 2.0 28 07/04/16 00:00 98.0 63 18 Room Air 07/03/16 23:19 110 20 99 Room Air 07/03/16 23:11 102 20 98 Room Air 07/03/16 20:00 97.7 103 20 141/94 97 Room Air 07/03/16 18:33 98 20 100 Nasal Cannula 2.0 28 07/03/16 18:32 97 Nasal Cannula 2.0 28 07/03/16 18:32 Nasal Cannula 2.0 28 07/03/16 18:28 94 20 97 Nasal Cannula 2.0 28 07/03/16 16:00 97.9 108 20 134/92 95 Room Air Height (Feet): 6 Height (Inches): 0.00 Weight (Pounds): 173 General Appearance: no acute distress HEENT: normocephalic, atraumatic, anicteric, mucous membranes moist, PERRL, EOMI, pharynx normal, supple, no JVD Respiratory/Chest: rhonchi - bilaterally - few rhonchi and wheezing Cardiovascular: normal rate, regular rhythm, no gallop/murmur, no JVD Abdomen: normal bowel sounds, soft, non tender, no organomegaly, non distended Genitourinary: other - no de la torre Extremities: no cyanosis Skin: no rash 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0) Hematocrit 42.3 % (42.0-52.0) Mean Corpuscular Volume 97 FL (80-99) Mean Corpuscular Hemoglobin 32.6 PG (27.0-31.0) H Mean Corpuscular Hemoglobin Concent 33.5 G/DL (32.0-36.0) Red Cell Distribution Width 12.6 % (11.6-14.8) Platelet Count 222 K/UL (150-450) Mean Platelet Volume 6.8 FL (6.5-10.1) Neutrophils (%) (Auto) 75.3 % (45.0-75.0) H Lymphocytes (%) (Auto) 14.3 % (20.0-45.0) L Monocytes (%) (Auto) 9.5 % (1.0-10.0) Eosinophils (%) (Auto) 0.1 % (0.0-3.0) Basophils (%) (Auto) 0.8 % (0.0-2.0) Sodium Level 143 mEQ/L (135-145) Potassium Level 3.7 mEQ/L (3.4-4.9) Chloride Level 100 mEQ/L (98-107) Carbon Dioxide Level 30 mEQ/L (20-30) Anion Gap 13 (5-15) Blood Urea Nitrogen 15 mg/dL (7-23) Creatinine 0.9 mg/dL (0.7-1.2) Estimat Glomerular Filtration Rate > 60 mL/min (>60) Glucose Level 109 mg/dL (74-106) H Calcium Level 9.2 mg/dL (8.6-10.2) Current Medications Medications (Trade) Dose Ordered Sig/Ben Route PRN Reason Start Time Stop Time Status Last Admin Dose Admin Acetaminophen (Tylenol) 650 mg Q6H PRN ORAL Mild Pain (Pain Scale 1-3) 06/29/16 21:45 07/29/16 21:44 Albuterol/ Ipratropium (DuoNeb 0.5-3(2.5)mg/3ml) 3 ml Q4HRT HHN 07/03/16 23:00 07/08/16 22:59 07/04/16 09:22 Alprazolam 1 mg 1 mg BID ORAL 07/01/16 09:00 07/08/16 08:59 07/03/16 17:55 Bupropion HCl (Wellbutrin XL) 300 mg DAILY ORAL 07/01/16 09:00 07/31/16 08:59 07/04/16 09:02 Chlorhexidine Gluconate (Penny-Hex 2%) 1 applic DAILY TOPIC 07/04/16 09:00 08/03/16 08:59 07/04/16 09:04 Dextrose (Dextrose 50%) STAT PRN IV Hypoglycemia 06/29/16 21:45 07/29/16 21:44 Docusate Sodium (Colace) 100 mg EVERY 12 HOURS ORAL 06/30/16 09:00 07/30/16 08:59 07/04/16 09:03 Mupirocin (Bactroban Oint) 1 applic EVERY 12 HOURS TOPIC 07/03/16 15:00 07/08/16 14:59 07/04/16 09:03 Pantoprazole (Protonix) 40 mg ACBREAKFAST ORAL 07/04/16 06:30 08/02/16 08:59 07/04/16 06:02 Polyethylene Glycol (Miralax) 17 gm DAILYPRN PRN ORAL Constipation 07/04/16 11:45 08/03/16 11:44 Prednisone (predniSONE) 60 mg Taper DAILY ORAL 07/05/16 09:00 07/11/16 08:59 Promethazine HCl/ Codeine (Phenergan with Codeine) 5 ml Q4H PRN ORAL For Cough 06/30/16 15:45 07/30/16 15:44 07/03/16 08:26 Valacyclovir HCl (Valtrex) 1,000 mg DAILY ORAL 07/03/16 09:00 08/02/16 08:59 Vancomycin HCl (Vanco rx to dose) 1 ea DAILY PRN MISC Per rx protocol 06/29/16 21:45 07/29/16 21:44 Vancomycin HCl/ Dextrose (Vancomycin/D5W) 275 ml @ 183.333 mls/hr Q8HR@0600,1400,2200 IVPB 07/01/16 14:00 07/09/16 23:05 07/04/16 06:02 Zolpidem Tartrate (Ambien) 5 mg HSPRN PRN ORAL Insomnia 06/29/16 21:45 07/29/16 21:44 07/03/16 00:05 CARMITA ORDONEZ July 04, 2016 13:23
[2016-07-04 15:51] VITALS: BP 130/79
[2016-07-04] MEDS ORDERED: 1/2 NS 1000ml IV ONE (17:36)
[2016-07-04] MEDS ORDERED: NS 275ml ONE ×2 (17:36→18:34)
[2016-07-04 20:00] VITALS: BP 132/76
--- NOTE | 2016-07-04 23:55 | Cardiology Progress Note ---
Assessment/Plan Assessment/Plan 1. Non-cardiac chest pain, likely due to pneumonia. 2. Dyspnea likely due to PNA. 3. Sinus tachycardia, continue Abx, hydration, pain control. Subjective Subjective No cardiac events. Sinus tachycardia at 104. Complaining about chest pain at upper midsternal area. Objective Last 24 Hour Vital Signs Date Time Temp Pulse Resp B/P Pulse Ox O2 Delivery O2 Flow Rate FiO2 07/04/16 23:39 99 18 100 Room Air 21 07/04/16 20:02 98 15 99 Room Air 07/04/16 19:51 89 Nasal Cannula 2.0 07/04/16 19:51 89 14 98 Nasal Cannula 2.0 07/04/16 19:51 Nasal Cannula 2.0 07/04/16 15:51 97.5 99 18 130/79 98 Nasal Cannula 2.0 07/04/16 14:20 97 20 99 Room Air 07/04/16 14:10 100 20 96 Nasal Cannula 2.0 07/04/16 11:50 97.5 109 20 136/94 95 Room Air 07/04/16 09:33 98 20 99 Room Air 07/04/16 09:23 90 20 96 Room Air 21 07/04/16 09:23 96 Room Air 21 07/04/16 09:23 Room Air 07/04/16 08:57 97.0 98 20 122/69 96 Room Air 07/04/16 04:00 97.0 70 20 139/82 96 Nasal Cannula 2.0 07/04/16 03:14 93 18 99 Nasal Cannula 2.0 07/04/16 03:08 90 18 99 Nasal Cannula 2.0 07/04/16 00:00 98.0 63 18 Room Air Intake and Output 07/03/16 07/04/16 19:00 07:00 Intake Total 1115.000 ml 1166.666 ml Output Total 1200 ml Balance 1115.000 ml -33.334 ml Intake Oral 840 ml 800 ml IV Total 275.000 ml 366.666 ml Output Urine Total 1200 ml # Voids 5 4 # Bowel Movements 1 Laboratory Tests Test 07/04/16 05:20 White Blood Count 13.5 K/UL (4.8-10.8) H Red Blood Count 4.35 M/UL (4.70-6.10) L Hemoglobin 14.2 G/DL (14.2-18.0) Hematocrit 42.3 % (42.0-52.0) Mean Corpuscular Volume 97 FL (80-99) Mean Corpuscular Hemoglobin 32.6 PG (27.0-31.0) H Mean Corpuscular Hemoglobin Concent 33.5 G/DL (32.0-36.0) Red Cell Distribution Width 12.6 % (11.6-14.8) Platelet Count 222 K/UL (150-450) Mean Platelet Volume 6.8 FL (6.5-10.1) Neutrophils (%) (Auto) 75.3 % (45.0-75.0) H Lymphocytes (%) (Auto) 14.3 % (20.0-45.0) L Monocytes (%) (Auto) 9.5 % (1.0-10.0) Eosinophils (%) (Auto) 0.1 % (0.0-3.0) Basophils (%) (Auto) 0.8 % (0.0-2.0) Sodium Level 143 mEQ/L (135-145) Potassium Level 3.7 mEQ/L (3.4-4.9) Chloride Level 100 mEQ/L (98-107) Carbon Dioxide Level 30 mEQ/L (20-30) Anion Gap 13 (5-15) Blood Urea Nitrogen 15 mg/dL (7-23) Creatinine 0.9 mg/dL (0.7-1.2) Estimat Glomerular Filtration Rate > 60 mL/min (>60) Glucose Level 109 mg/dL (74-106) H Calcium Level 9.2 mg/dL (8.6-10.2) Objective HEAD AND NECK: Atraumatic, normocephalic, Extraocular movement intact. Pupils are reactive to light and accommodation. Neck: No JVP. No carotid bruit LUNGS: Diffuse wheezing in both lung, right basilar tubular sound. CARDIAC: Tachycardic, normal S1 and S2. No murmur, gallops or rubs. ABDOMEN: Soft, nontender, nondistended, no HSM, + BS EXTREMITY: No edema, clubbing or cyanosis. ZENIA MATHEW July 04, 2016 23:55
[2016-07-05] VITALS: BP 134/83
[2016-07-05] MEDS: Promethazine/Codeine 5ml UD ORAL PRN (00:22)
--- NOTE | 2016-07-05 00:43 | Cardiology Progress Note ---
Assessment/Plan Assessment/Plan 1. Dyspnea likely due to PNA. 2. Sinus tachycardia, hydration, pain control, treatment of the underlying disease, if persistent may consider CCB or B-blockers. Subjective Subjective Denies chest pain or SOB. No cardiac events. Objective Last 24 Hour Vital Signs Date Time Temp Pulse Resp B/P Pulse Ox O2 Delivery O2 Flow Rate FiO2 07/04/16 23:39 99 18 100 Room Air 21 07/04/16 20:02 98 15 99 Room Air 07/04/16 19:51 89 Nasal Cannula 2.0 28 07/04/16 19:51 89 14 98 Nasal Cannula 2.0 07/04/16 19:51 Nasal Cannula 2.0 28 07/04/16 15:51 97.5 99 18 130/79 98 Nasal Cannula 2.0 07/04/16 14:20 97 20 99 Room Air 07/04/16 14:10 100 20 96 Nasal Cannula 2.0 07/04/16 11:50 97.5 109 20 136/94 95 Room Air 07/04/16 09:33 98 20 99 Room Air 07/04/16 09:23 90 20 96 Room Air 21 07/04/16 09:23 96 Room Air 21 07/04/16 09:23 Room Air 07/04/16 08:57 97.0 98 20 122/69 96 Room Air 07/04/16 04:00 97.0 70 20 139/82 96 Nasal Cannula 2.0 07/04/16 03:14 93 18 99 Nasal Cannula 2.0 28 07/04/16 03:08 90 18 99 Nasal Cannula 2.0 28 Intake and Output 07/04/16 07/05/16 19:00 07:00 Intake Total 1418.333 ml 366.666 ml Output Total 300 ml Balance 1118.333 ml 366.666 ml Intake Oral 960 ml IV Total 458.333 ml 366.666 ml Output Urine Total 300 ml # Voids 2 # Bowel Movements 1 Laboratory Tests Test 07/04/16 05:20 White Blood Count 13.5 K/UL (4.8-10.8) H Red Blood Count 4.35 M/UL (4.70-6.10) L Hemoglobin 14.2 G/DL (14.2-18.0) Hematocrit 42.3 % (42.0-52.0) Mean Corpuscular Volume 97 FL (80-99) Mean Corpuscular Hemoglobin 32.6 PG (27.0-31.0) H Mean Corpuscular Hemoglobin Concent 33.5 G/DL (32.0-36.0) Red Cell Distribution Width 12.6 % (11.6-14.8) Platelet Count 222 K/UL (150-450) Mean Platelet Volume 6.8 FL (6.5-10.1) Neutrophils (%) (Auto) 75.3 % (45.0-75.0) H Lymphocytes (%) (Auto) 14.3 % (20.0-45.0) L Monocytes (%) (Auto) 9.5 % (1.0-10.0) Eosinophils (%) (Auto) 0.1 % (0.0-3.0) Basophils (%) (Auto) 0.8 % (0.0-2.0) Sodium Level 143 mEQ/L (135-145) Potassium Level 3.7 mEQ/L (3.4-4.9) Chloride Level 100 mEQ/L (98-107) Carbon Dioxide Level 30 mEQ/L (20-30) Anion Gap 13 (5-15) Blood Urea Nitrogen 15 mg/dL (7-23) Creatinine 0.9 mg/dL (0.7-1.2) Estimat Glomerular Filtration Rate > 60 mL/min (>60) Glucose Level 109 mg/dL (74-106) H Calcium Level 9.2 mg/dL (8.6-10.2) Objective HEAD AND NECK: Atraumatic, normocephalic, Extraocular movement intact. Pupils are reactive to light and accommodation. Neck: No JVP. No carotid bruit LUNGS: Diffuse wheezing in both lung. CARDIAC: Tachycardic, normal S1 and S2. No murmur, gallops or rubs. ABDOMEN: Soft, nontender, nondistended, no HSM, + BS EXTREMITY: No edema, clubbing or cyanosis. ZENIA MATHEW July 05, 2016 00:43
[2016-07-05] MEDS: DuoNeb 0.5-3(2.5)mg/3ml neb HHN SCH ×7 (03:00→23:37)
[2016-07-05 04:00] VITALS: BP 123/81
[2016-07-05] MEDS: Vancomycin 1250mg/D5W 275ml IVPB SCH ×6 (05:16→22:05)
[2016-07-05 07:26] LABS: BASOPHILS % (AUTO) 0.8 % (0.0-2.0); EOSINOPHILS % (AUTO) 0.1 % (0.0-3.0); LYMPHOCYTES % (AUTO) 16.6 % (20.0-45.0); MEAN CORPUSCULAR HEMOGLOBIN 32.1 PG (27.0-31.0); MEAN CORPUSCULAR HGB CONC 33.9 G/DL (32.0-36.0); MEAN CORPUSCULAR VOLUME 95 FL (80-99); MEAN PLATELET VOLUME 6.5 FL (6.5-10.1); MONOCYTES % (AUTO) 9.4 % (1.0-10.0); NEUTROPHILS % (AUTO) 73.1 % (45.0-75.0); PLATELET COUNT 232 K/UL (150-450); RED CELL DISTRIBUTION WIDTH 11.9 % (11.6-14.8); WHITE BLOOD COUNT 14.9 K/UL (4.8-10.8)
[2016-07-05 08:14] VITALS: BP 143/89
[2016-07-05] MEDS: Dyna-Hex 2% Top Sol 8oz TOPIC SCH (09:00)
[2016-07-05] MEDS: ALPRAZolam 0.5mg tab ORAL SCH ×3 (09:00→18:40)
[2016-07-05] MEDS: Docusate 100mg cap ORAL SCH ×2 (09:08→22:05)
[2016-07-05] MEDS: BuPROPion XL 150mg tab ORAL SCH (09:08)
[2016-07-05] MEDS: PredniSONE 20mg tab ORAL SCH (09:09)
--- NOTE | 2016-07-05 09:41 | General Progress Note ---
Assessment/Plan Assessment/Plan PLAN d/c planing start steroid taper to continue breathing treatment iv anabiotic restart home meds fallow up with sputum culture Subjective Constitutional: Reports: no symptoms HEENT: Reports: no symptoms Respiratory: Reports: SOB with excertion, cough, orthopnea Gastrointestinal/Abdominal: Reports: no symptoms Genitourinary: Reports: no symptoms Neurologic/Psychiatric: Reports: no symptoms Endocrine: Reports: no symptoms Allergies: Coded Allergies: HYDROMORPHONE (Verified Allergy, Unknown, 06/29/16) All Systems: reviewed and negative except above Subjective continue to have cough Objective Last 24 Hour Vital Signs Date Time Temp Pulse Resp B/P Pulse Ox O2 Delivery O2 Flow Rate FiO2 07/05/16 08:14 98.2 120 17 143/89 95 Room Air 07/05/16 06:58 96 18 100 Nasal Cannula 2.0 07/05/16 06:57 Nasal Cannula 2.0 07/05/16 06:51 91 18 98 Nasal Cannula 2.0 07/05/16 06:50 98 Nasal Cannula 2.0 07/05/16 04:19 95 18 99 Room Air 21 07/05/16 04:00 97.3 82 17 123/81 95 Room Air 07/05/16 03:19 Room Air 07/05/16 03:18 Room Air 07/05/16 00:00 97.5 95 19 134/83 98 Nasal Cannula 2.0 07/04/16 23:40 99 18 99 Room Air 07/04/16 23:39 99 18 100 Room Air 07/04/16 20:02 98 15 99 Room Air 07/04/16 20:00 97.7 98 18 132/76 97 Room Air 07/04/16 19:51 89 Nasal Cannula 2.0 07/04/16 19:51 89 14 98 Nasal Cannula 2.0 07/04/16 19:51 Nasal Cannula 2.0 07/04/16 15:51 97.5 99 18 130/79 98 Nasal Cannula 2.0 07/04/16 14:20 97 20 99 Room Air 07/04/16 14:10 100 20 96 Nasal Cannula 2.0 07/04/16 11:50 97.5 109 20 136/94 95 Room Air Intake and Output 07/04/16 07/05/16 19:00 07:00 Intake Total 1418.333 ml 1249.999 ml Output Total 300 ml 800 ml Balance 1118.333 ml 449.999 ml Intake Oral 960 ml 700 ml IV Total 458.333 ml 549.999 ml Output Urine Total 300 ml 800 ml # Voids 2 3 # Bowel Movements 1 Laboratory Tests 07/05/16 09:19: White Blood Count 14.9H, Red Blood Count 4.60L, Hemoglobin 14.8, Hematocrit 43.6 , Mean Corpuscular Volume 95, Mean Corpuscular Hemoglobin 32.1H, Mean Corpuscular Hemoglobin Concent 33.9, Red Cell Distribution Width 11.9, Platelet Count 232, Mean Platelet Volume 6.5, Neutrophils (%) (Auto) 73.1, Lymphocytes (% ) (Auto) 16.6L, Monocytes (%) (Auto) 9.4, Eosinophils (%) (Auto) 0.1, Basophils (%) (Auto) 0.8 Height (Feet): 6 Height (Inches): 0.00 Weight (Pounds): 173 Objective HEAD AND NECK: No JVP. No LAD. No thyromegaly. Extraocular movement intact. Pupils are reactive to light and accommodation. LUNGS: Diffuse wheezing in both lung. CARDIAC: Tachy S1 and S2. No murmur. No rub. ABDOMEN: Soft, nontender, and nondistended. EXTREMITY: No edema. No clubbing. No cyanosis. TOSIN MONSIVAIS July 05, 2016 09:40
[2016-07-05 12:00] VITALS: BP 146/90
--- NOTE | 2016-07-05 12:31 | Pulmonology Progress Note ---
Assessment/Plan Assessment/Plan ASSESSMENT persistent chronic cough possible asthma exacerbation MRSA sputum URI vs chronic bronchitis possible PNA anxiety hx of smoking hx of Aspergillosis, s/p Rx Hx of HSV PLAN OF CARE [facility] floor O2 HHN prn sputum cx with MRSA, blood cx preliminary negative CXR negative CT chest negative, no evidence of acute pathology leukocytosis likely reactive 2 to steroids( steroids started 07/02, and this am, 07/03 with leucocytosis) taper steroids and change to oral , give additional dose of Solumedrol 40 mg x 1 antitussive prn consider allergy test as outpatient as a possible cause for chronic cough abx ID follows PICC placed need HH for IV abx to be arranged ( in progress) GI prophylaxis Valtrex for chronic suppression dc plan as per PMD, with HH for IV abx ( duration per ID recommendation) need steroids oral upon discharge case discussed and evaluated by supervising physician Subjective Allergies: Coded Allergies: HYDROMORPHONE (Verified Allergy, Unknown, 06/29/16) Subjective still with leukocytosis , afebrile denies chest pain, chest tightness and wheezing still persists on RA sat stable sputum cx + MPSA Objective Last 24 Hour Vital Signs Date Time Temp Pulse Resp B/P Pulse Ox O2 Delivery O2 Flow Rate FiO2 07/05/16 12:00 97.7 104 17 146/90 96 Room Air 07/05/16 11:22 90 18 98 Room Air 3.0 32 07/05/16 11:07 90 18 98 Room Air 3.0 32 07/05/16 11:07 28 07/05/16 08:14 98.2 120 17 143/89 95 Room Air 07/05/16 06:58 96 18 100 Nasal Cannula 2.0 28 07/05/16 06:57 Nasal Cannula 2.0 28 07/05/16 06:51 91 18 98 Nasal Cannula 2.0 28 07/05/16 06:50 98 Nasal Cannula 2.0 28 07/05/16 04:19 95 18 99 Room Air 21 07/05/16 04:00 97.3 82 17 123/81 95 Room Air 07/05/16 03:19 Room Air 07/05/16 03:18 Room Air 07/05/16 00:00 97.5 95 19 134/83 98 Nasal Cannula 2.0 07/04/16 23:40 99 18 99 Room Air 07/04/16 23:39 99 18 100 Room Air 21 07/04/16 20:02 98 15 99 Room Air 07/04/16 20:00 97.7 98 18 132/76 97 Room Air 07/04/16 19:51 89 Nasal Cannula 2.0 28 07/04/16 19:51 89 14 98 Nasal Cannula 2.0 07/04/16 19:51 Nasal Cannula 2.0 28 07/04/16 15:51 97.5 99 18 130/79 98 Nasal Cannula 2.0 07/04/16 14:20 97 20 99 Room Air 07/04/16 14:10 100 20 96 Nasal Cannula 2.0 Intake and Output 07/04/16 07/05/16 19:00 07:00 Intake Total 1418.333 ml 1249.999 ml Output Total 300 ml 800 ml Balance 1118.333 ml 449.999 ml Intake Oral 960 ml 700 ml IV Total 458.333 ml 549.999 ml Output Urine Total 300 ml 800 ml # Voids 2 3 # Bowel Movements 1 Objective General Appearance: WD/WN, no acute distress HEENT: anicteric, mucous membranes moist, PERRL Respiratory/Chest: chest wall non-tender, isolated expiratory wheezes posterior rosado Cardiovascular: normal peripheral pulses, normal rate, no JVD, LUE PICC intact Abdomen: normal bowel sounds, soft, non tender, non distended Genitourinary: normal external genitalia Extremities: no edema, pedal pulses normal Neurologic/Psychiatric: no motor/sensory deficits, alert, oriented x 3, responsive Musculoskeletal: normal muscle bulk Microbiology Date/Time Source Procedure Growth Status 07/03/16 16:05 Blood Blood Culture - Preliminary NO GROWTH AFTER 24 HOURS Resulted 07/03/16 16:00 Blood Blood Culture - Preliminary NO GROWTH AFTER 24 HOURS Resulted 07/04/16 11:40 Sputum Gram Stain - Final Resulted 07/04/16 11:40 Sputum Sputum Culture - Preliminary Resulted 07/03/16 14:10 Nasal Nares MRSA Culture - Final Staphylococcus Aureus - Mrsa Complete Laboratory Tests 07/05/16 09:19: White Blood Count 14.9H, Red Blood Count 4.60L, Hemoglobin 14.8, Hematocrit 43.6 , Mean Corpuscular Volume 95, Mean Corpuscular Hemoglobin 32.1H, Mean Corpuscular Hemoglobin Concent 33.9, Red Cell Distribution Width 11.9, Platelet Count 232, Mean Platelet Volume 6.5, Neutrophils (%) (Auto) 73.1, Lymphocytes (% ) (Auto) 16.6L, Monocytes (%) (Auto) 9.4, Eosinophils (%) (Auto) 0.1, Basophils (%) (Auto) 0.8 Current Medications Medications (Trade) Dose Ordered Sig/Ben Route PRN Reason Start Time Stop Time Status Last Admin Dose Admin Acetaminophen (Tylenol) 650 mg Q6H PRN ORAL Mild Pain (Pain Scale 1-3) 06/29/16 21:45 07/29/16 21:44 Albuterol/ Ipratropium (DuoNeb 0.5-3(2.5)mg/3ml) 3 ml Q4HRT HHN 07/03/16 23:00 07/08/16 22:59 07/05/16 11:07 Alprazolam 1 mg 1 mg BID ORAL 07/01/16 09:00 07/08/16 08:59 07/04/16 18:52 Bupropion HCl (Wellbutrin XL) 300 mg DAILY ORAL 07/01/16 09:00 07/31/16 08:59 07/05/16 09:08 Chlorhexidine Gluconate (Penny-Hex 2%) 1 applic DAILY TOPIC 07/04/16 09:00 08/03/16 08:59 07/04/16 09:04 Dextrose (Dextrose 50%) STAT PRN IV Hypoglycemia 06/29/16 21:45 07/29/16 21:44 Docusate Sodium (Colace) 100 mg EVERY 12 HOURS ORAL 06/30/16 09:00 07/30/16 08:59 07/05/16 09:08 Mupirocin (Bactroban Oint) 1 applic EVERY 12 HOURS TOPIC 07/03/16 15:00 07/08/16 14:59 07/05/16 09:09 Pantoprazole (Protonix) 40 mg ACBREAKFAST ORAL 07/04/16 06:30 08/02/16 08:59 07/05/16 06:26 Polyethylene Glycol (Miralax) 17 gm DAILYPRN PRN ORAL Constipation 07/04/16 11:45 08/03/16 11:44 07/04/16 18:52 Prednisone (predniSONE) 60 mg Taper DAILY ORAL 07/05/16 09:00 07/11/16 08:59 07/05/16 09:09 Promethazine HCl/ Codeine (Phenergan with Codeine) 5 ml Q4H PRN ORAL For Cough 06/30/16 15:45 07/30/16 15:44 07/05/16 00:22 Valacyclovir HCl (Valtrex) 1,000 mg DAILY ORAL 07/03/16 09:00 08/02/16 08:59 Vancomycin HCl (Vanco rx to dose) 1 ea DAILY PRN MISC Per rx protocol 06/29/16 21:45 07/29/16 21:44 Vancomycin HCl/ Dextrose (Vancomycin/D5W) 275 ml @ 183.333 mls/hr Q8HR@0600,1400,2200 IVPB 07/01/16 14:00 07/09/16 23:05 07/05/16 05:16 Zolpidem Tartrate (Ambien) 5 mg HSPRN PRN ORAL Insomnia 06/29/16 21:45 07/29/16 21:44 07/03/16 00:05 Susie Grey NP ([facility]) July 05, 2016 12:31
[2016-07-05] MEDS ORDERED: Solu-MEDROL 40mg Inj IVP ONE (13:00)
[2016-07-05] MEDS ORDERED: NS 275ml ONE (14:21)
[2016-07-05 16:00] VITALS: BP 127/79
[2016-07-05 20:00] VITALS: BP 143/81
--- NOTE | 2016-07-05 21:56 | Cardiology Progress Note ---
Assessment/Plan Assessment/Plan 1. Dyspnea likely due to PNA. 2. Sinus tachycardia, hydration, pain control, treatment of the underlying disease, start cardizem CD 180mg po daily. 3. Non-cardiac chest pain. Subjective Subjective Still chest tightness and some pleuritic chest pain. Objective Last 24 Hour Vital Signs Date Time Temp Pulse Resp B/P Pulse Ox O2 Delivery O2 Flow Rate FiO2 07/05/16 20:21 116 18 97 Room Air 07/05/16 20:21 Nasal Cannula 2.0 28 07/05/16 20:18 97 Room Air 21 07/05/16 16:00 111 16 96 Room Air 3.0 32 07/05/16 16:00 97.7 111 16 127/79 96 Room Air 07/05/16 15:50 32 07/05/16 15:50 105 18 98 Room Air 3.0 32 07/05/16 12:00 97.7 104 17 146/90 96 Room Air 07/05/16 11:22 90 18 98 Room Air 3.0 32 07/05/16 11:07 90 18 98 Room Air 3.0 32 07/05/16 11:07 28 07/05/16 08:14 98.2 120 17 143/89 95 Room Air 07/05/16 06:58 96 18 100 Nasal Cannula 2.0 07/05/16 06:57 Nasal Cannula 2.0 28 07/05/16 06:51 91 18 98 Nasal Cannula 2.0 28 07/05/16 06:50 98 Nasal Cannula 2.0 28 07/05/16 04:19 95 18 99 Room Air 07/05/16 04:00 97.3 82 17 123/81 95 Room Air 07/05/16 03:19 Room Air 07/05/16 03:18 Room Air 07/05/16 00:00 97.5 95 19 134/83 98 Nasal Cannula 2.0 07/04/16 23:40 99 18 99 Room Air 07/04/16 23:39 99 18 100 Room Air 21 Intake and Output 07/04/16 07/05/16 19:00 07:00 Intake Total 1418.333 ml 1249.999 ml Output Total 300 ml 800 ml Balance 1118.333 ml 449.999 ml Intake Oral 960 ml 700 ml IV Total 458.333 ml 549.999 ml Output Urine Total 300 ml 800 ml # Voids 2 3 # Bowel Movements 1 Laboratory Tests Test 07/05/16 09:19 White Blood Count 14.9 K/UL (4.8-10.8) H Red Blood Count 4.60 M/UL (4.70-6.10) L Hemoglobin 14.8 G/DL (14.2-18.0) Hematocrit 43.6 % (42.0-52.0) Mean Corpuscular Volume 95 FL (80-99) Mean Corpuscular Hemoglobin 32.1 PG (27.0-31.0) H Mean Corpuscular Hemoglobin Concent 33.9 G/DL (32.0-36.0) Red Cell Distribution Width 11.9 % (11.6-14.8) Platelet Count 232 K/UL (150-450) Mean Platelet Volume 6.5 FL (6.5-10.1) Neutrophils (%) (Auto) 73.1 % (45.0-75.0) Lymphocytes (%) (Auto) 16.6 % (20.0-45.0) L Monocytes (%) (Auto) 9.4 % (1.0-10.0) Eosinophils (%) (Auto) 0.1 % (0.0-3.0) Basophils (%) (Auto) 0.8 % (0.0-2.0) Microbiology Date/Time Source Procedure Growth Status 07/03/16 16:05 Blood Blood Culture - Preliminary NO GROWTH AFTER 24 HOURS Resulted 07/03/16 16:00 Blood Blood Culture - Preliminary NO GROWTH AFTER 24 HOURS Resulted 07/04/16 11:40 Sputum Gram Stain - Final Resulted 07/04/16 11:40 Sputum Sputum Culture - Preliminary Resulted 07/03/16 14:10 Nasal Nares MRSA Culture - Final Staphylococcus Aureus - Mrsa Complete Objective HEAD AND NECK: Atraumatic, normocephalic, Extraocular movement intact. Pupils are reactive to light and accommodation. Neck: No JVP. No carotid bruit LUNGS: Diffuse wheezing in both lung. CARDIAC: Tachycardic, normal S1 and S2. No murmur, gallops or rubs. ABDOMEN: Soft, nontender, nondistended, no HSM, + BS EXTREMITY: No edema, clubbing or cyanosis. ZENIA MATHEW July 05, 2016 21:56
[2016-07-06] VITALS (7 sets, daily range): BP systolic 115–147; BP diastolic 67–93
[2016-07-06] MEDS: Promethazine/Codeine 5ml UD ORAL PRN (03:02)
[2016-07-06] MEDS: DuoNeb 0.5-3(2.5)mg/3ml neb HHN SCH ×6 (04:02→23:00)
[2016-07-06] MEDS ORDERED: Vancomycin 1gm inj IVPB ONE (05:25)
[2016-07-06] MEDS ORDERED: D5W IVPB SCH (06:00)
[2016-07-06] MEDS ORDERED: VANCOMYCIN IVPB SCH (06:00)
--- NOTE | 2016-07-06 08:18 | General Progress Note ---
Assessment/Plan Assessment/Plan PLAN may need to stay for observation today due to last night episode to continue breathing treatment iv anabiotic give anti anxiety meds fallow up with sputum culture Subjective Constitutional: Reports: malaise, weakness HEENT: Reports: no symptoms Respiratory: Reports: SOB at rest, SOB with excertion, cough, shortness of breath, wheezing Gastrointestinal/Abdominal: Reports: no symptoms Genitourinary: Reports: no symptoms Neurologic/Psychiatric: Reports: anxiety Endocrine: Reports: no symptoms Hematologic/Lymphatic: Reports: no symptoms Allergies: Coded Allergies: HYDROMORPHONE (Verified Allergy, Unknown, 06/29/16) Subjective last night got very sob required 3 breathing treatment unable to sleep last night Objective Last 24 Hour Vital Signs Date Time Temp Pulse Resp B/P Pulse Ox O2 Delivery O2 Flow Rate FiO2 07/06/16 07:41 Room Air 07/06/16 07:40 Room Air 07/06/16 07:39 Room Air 07/06/16 07:39 98 Room Air 07/06/16 04:10 101 16 100 Room Air 07/06/16 04:02 98 18 98 Room Air 07/06/16 04:00 97.0 97 17 128/88 97 Room Air 07/06/16 00:00 97.5 97 17 138/84 97 Room Air 07/05/16 23:41 106 16 100 Room Air 07/05/16 23:36 102 18 98 Room Air 07/05/16 20:21 116 18 97 Room Air 07/05/16 20:21 Nasal Cannula 2.0 28 07/05/16 20:18 97 Room Air 21 07/05/16 20:00 97.3 97 16 143/81 97 Room Air 07/05/16 16:00 111 16 96 Room Air 3.0 32 07/05/16 16:00 97.7 111 16 127/79 96 Room Air 07/05/16 15:50 32 07/05/16 15:50 105 18 98 Room Air 3.0 32 07/05/16 12:00 97.7 104 17 146/90 96 Room Air 07/05/16 11:22 90 18 98 Room Air 3.0 32 07/05/16 11:07 90 18 98 Room Air 3.0 32 07/05/16 11:07 28 Intake and Output 07/05/16 07/06/16 19:00 07:00 Intake Total 183.333 ml Output Total 1 ml Balance 182.333 ml IV Total 183.333 ml Stool Total 1 ml # Voids 5 2 # Bowel Movements 1 Laboratory Tests 07/05/16 09:19: White Blood Count 14.9H, Red Blood Count 4.60L, Hemoglobin 14.8, Hematocrit 43.6 , Mean Corpuscular Volume 95, Mean Corpuscular Hemoglobin 32.1H, Mean Corpuscular Hemoglobin Concent 33.9, Red Cell Distribution Width 11.9, Platelet Count 232, Mean Platelet Volume 6.5, Neutrophils (%) (Auto) 73.1, Lymphocytes (% ) (Auto) 16.6L, Monocytes (%) (Auto) 9.4, Eosinophils (%) (Auto) 0.1, Basophils (%) (Auto) 0.8 07/05/16 22:00: Vancomycin Level Trough 8.8 Height (Feet): 6 Height (Inches): 0.00 Weight (Pounds): 173 Objective HEAD AND NECK: No JVP. No LAD. No thyromegaly. Extraocular movement intact. Pupils are reactive to light and accommodation. LUNGS: Diffuse wheezing in both lung. CARDIAC: Tachy S1 and S2. No murmur. No rub. ABDOMEN: Soft, nontender, and nondistended. EXTREMITY: No edema. No clubbing. No cyanosis. TOSIN MONSIVAIS July 06, 2016 08:17
[2016-07-06] MEDS ORDERED: LORazepam 1mg tab ORAL ONE (08:30)
[2016-07-06] MEDS: BuPROPion XL 150mg tab ORAL SCH (08:48)
[2016-07-06] MEDS: Docusate 100mg cap ORAL SCH ×2 (08:49→20:42)
[2016-07-06] MEDS: PredniSONE 20mg tab ORAL SCH (08:49)
[2016-07-06] MEDS: Dyna-Hex 2% Top Sol 8oz TOPIC SCH (08:50)
[2016-07-06] MEDS: ALPRAZolam 0.5mg tab ORAL SCH ×2 (08:50→19:58)
[2016-07-06 09:13] LABS: ANION GAP 14 (5-15); CALCIUM 9.6 mg/dL (8.6-10.2); CARBON DIOXIDE 29 mEQ/L (20-30); CHLORIDE 98 mEQ/L (98-107); GLOMERULAR FILTRATION RATE > 60 mL/min (>60); HEMOLYSIS 16; POTASSIUM 3.8 mEQ/L (3.4-4.9); SODIUM 141 mEQ/L (135-145)
--- NOTE | 2016-07-06 13:29 | Infectious Diseases Prog Note ---
Assessment/Plan Assessment/Plan A) 1) mrsa respiratory infection/uri/bronchitis - clinically improving, less congested, less sob, lungs clearer 2) ct negative for pna, leukocytosis likely secondary to steroids and improved 3) hx asthma, on herpes suppression with valtrex, hx aspergillosis that was treated in the past, pmh o/w negative, on prep with Truvada 4) sh-past smoker, fh-nc 5) allergies - hydromorphone 6) notes and records reviewed 7) d/w RN P) 1) vancomycin - day # 7 (plan on at least10 day treatment course, cannot give zyvox secondary to wellbutrin drug interaction) 2) on steroids, watch labs 3) continue treatment per primary and consultants 4) orders entered and noted 5) continue treatment per Dr. Irving and Dr. Lu 6) d/w patient at length Subjective Constitutional: Denies: fever HEENT: Reports: congestion - overall less Respiratory: Reports: shortness of breath Cardiovascular: Denies: chest pain Gastrointestinal/Abdominal: Denies: diarrhea, nausea, vomiting Genitourinary: Denies: dysuria Neurologic: Denies: headache Psychiatric: Denies: depression Skin: Denies: rash Hematologic: Denies: bleeding Musculoskeletal: Denies: pain Allergies: Coded Allergies: HYDROMORPHONE (Verified Allergy, Unknown, 06/29/16) Objective Vital Signs Last 24 Hour Vital Signs Date Time Temp Pulse Resp B/P Pulse Ox O2 Delivery O2 Flow Rate FiO2 07/06/16 11:49 97.8 95 20 125/67 97 Room Air 07/06/16 11:11 Room Air 07/06/16 11:11 Room Air 07/06/16 09:15 99 18 Nasal Cannula 2.0 07/06/16 08:00 96.9 99 18 147/92 97 Room Air 07/06/16 07:41 Room Air 07/06/16 07:40 Room Air 07/06/16 07:39 Room Air 07/06/16 07:39 98 Room Air 07/06/16 04:10 101 16 100 Room Air 07/06/16 04:02 98 18 98 Room Air 07/06/16 04:00 97.0 97 17 128/88 97 Room Air 07/06/16 00:00 97.5 97 17 138/84 97 Room Air 07/05/16 23:41 106 16 100 Room Air 07/05/16 23:36 102 18 98 Room Air 07/05/16 20:21 116 18 97 Room Air 07/05/16 20:21 Nasal Cannula 2.0 28 07/05/16 20:18 97 Room Air 21 07/05/16 20:00 97.3 97 16 143/81 97 Room Air 07/05/16 16:00 111 16 96 Room Air 3.0 32 07/05/16 16:00 97.7 111 16 127/79 96 Room Air 07/05/16 15:50 32 07/05/16 15:50 105 18 98 Room Air 3.0 32 Height (Feet): 6 Height (Inches): 0.00 Weight (Pounds): 173 General Appearance: no acute distress HEENT: normocephalic, atraumatic, anicteric, mucous membranes moist, PERRL, EOMI, pharynx normal, supple, no JVD Respiratory/Chest: other Cardiovascular: normal rate, regular rhythm Abdomen: normal bowel sounds, soft, non tender, no organomegaly Genitourinary: other - no de [place] torre Extremities: no cyanosis Skin: no rash Neurologic/Psychiatric: mandolin repairer II-XII grossly normal, alert, oriented x 3, responsive Lymphatic: no neck adenopathy Musculoskeletal: no effusion Objective chest x-ray - negative pna ct - negative pna (report noted) Microbiology Date/Time Source Procedure Growth Status 07/03/16 16:05 Blood Blood Culture - Preliminary NO GROWTH AFTER 48 HOURS Resulted 07/03/16 16:00 Blood Blood Culture - Preliminary NO GROWTH AFTER 48 HOURS Resulted 07/04/16 11:40 Sputum Gram Stain - Final Complete 07/04/16 11:40 Sputum Sputum Culture - Final NORMAL UPPER RESPIRATORY ARNOL PRESENT Complete 07/03/16 14:10 Nasal Nares MRSA Culture - Final Staphylococcus Aureus - Mrsa Complete Laboratory Tests Test 07/05/16 22:00 07/06/16 08:10 Vancomycin Level Trough 8.8 ug/mL (5.0-12.0) Sodium Level 141 mEQ/L (135-145) Potassium Level 3.8 mEQ/L (3.4-4.9) Chloride Level 98 mEQ/L (98-107) Carbon Dioxide Level 29 mEQ/L (20-30) Anion Gap 14 (5-15) Blood Urea Nitrogen 16 mg/dL (7-23) Creatinine 1.0 mg/dL (0.7-1.2) Estimat Glomerular Filtration Rate > 60 mL/min (>60) Glucose Level 121 mg/dL (74-106) H Calcium Level 9.6 mg/dL (8.6-10.2) Current Medications Medications (Trade) Dose Ordered Sig/Ben Route PRN Reason Start Time Stop Time Status Last Admin Dose Admin Acetaminophen (Tylenol) 650 mg Q6H PRN ORAL Mild Pain (Pain Scale 1-3) 06/29/16 21:45 07/29/16 21:44 Albuterol/ Ipratropium (DuoNeb 0.5-3(2.5)mg/3ml) 3 ml Q4HRT HHN 07/03/16 23:00 07/08/16 22:59 07/06/16 04:02 Alprazolam (Xanax) 1 mg BID ORAL 07/01/16 09:00 07/08/16 08:59 07/05/16 18:40 Bupropion HCl (Wellbutrin XL) 300 mg DAILY ORAL 07/01/16 09:00 07/31/16 08:59 07/06/16 08:48 Chlorhexidine Gluconate (Penny-Hex 2%) 1 applic DAILY TOPIC 07/04/16 09:00 08/03/16 08:59 07/04/16 09:04 Dextrose (Dextrose 50%) STAT PRN IV Hypoglycemia 06/29/16 21:45 07/29/16 21:44 Docusate Sodium (Colace) 100 mg EVERY 12 HOURS ORAL 06/30/16 09:00 07/30/16 08:59 07/06/16 08:49 Mupirocin (Bactroban Oint) 1 applic EVERY 12 HOURS TOPIC 07/03/16 15:00 07/08/16 14:59 07/06/16 08:50 Pantoprazole (Protonix) 40 mg ACBREAKFAST ORAL 07/04/16 06:30 08/02/16 08:59 07/06/16 05:14 Polyethylene Glycol (Miralax) 17 gm DAILYPRN PRN ORAL Constipation 07/04/16 11:45 08/03/16 11:44 07/04/16 18:52 Prednisone 50 mg 50 mg Taper DAILY ORAL 07/05/16 09:00 07/11/16 08:59 07/06/16 08:49 Promethazine HCl/ Codeine (Phenergan with Codeine) 5 ml Q4H PRN ORAL For Cough 06/30/16 15:45 07/30/16 15:44 07/06/16 03:02 Valacyclovir HCl (Valtrex) 1,000 mg DAILY ORAL 07/03/16 09:00 08/02/16 08:59 Vancomycin HCl (Vanco rx to dose) 1 ea DAILY PRN MISC Per rx protocol 06/29/16 21:45 07/29/16 21:44 Vancomycin HCl/ Dextrose (Vancomycin/D5W) 325 ml @ 162.5 mls/ hr Q8HR IVPB 07/06/16 14:00 07/11/16 13:59 Zolpidem Tartrate (Ambien) 5 mg HSPRN PRN ORAL Insomnia 06/29/16 21:45 07/29/16 21:44 07/03/16 00:05 CARMITA ORDONEZ July 06, 2016 13:29
--- NOTE | 2016-07-06 14:22 | Diagnostic Imaging Report ---
Indications: Needs long-term IV access Technique: Procedure performed by Dr. Marsh. Ultrasound confirms patent compressible left brachial vein. Total sterile technique, including sterile probe cover and sterile gel, hat, mask,, sterile gown, large sterile drape, and preparation with 2% chlorhexidine utilized. Local anesthesia with 1% lidocaine. Under real-time ultrasound guidance, puncture brachial vein using 21-gauge needle, documented and archived, passage 0.018 guidewire under direct fluoroscopy, which was used to determine appropriate catheter length, exchange for 5 [place] peel-away sheath. 5 [place] Bard dual-lumen power PICC cut to 45 cm. It was inserted through the peel-away sheath. Peel-away sheath and guidewire removed. Catheter fixed to the skin. Both catheter ports aspirated and flushed. Patient tolerated procedure well, without immediate complication. Digital radiograph documents satisfactory catheter tip position, at the cavoatrial junction. Total fluoroscopy time 0.4 minutes. Total dose area product 14 dGycm2 Impression: Successful placement of left arm PICC under sonographic and fluoroscopic guidance, as described above. Procedure performed by Dr. Marsh
[2016-07-06] MEDS ORDERED: Fleet's Enema 133ml RECTAL ONE (14:30)
[2016-07-06] MEDS: Vancomycin 1750mg/D5W 300ml IVPB SCH ×4 (14:59→22:30)
[2016-07-06] MEDS ORDERED: PredniSONE 5mg tab ORAL ONE (16:15)
[2016-07-06] MEDS ORDERED: D5W 275ml ONE (18:05)
--- NOTE | 2016-07-06 22:20 | Cardiology Progress Note ---
Assessment/Plan Assessment/Plan 1. Non-cardiac chest pain, likely pulmonary in origin. 2. Dyspnea likely due to PNA. 3. Sinus tachycardia, continue Abx, hydration and pain control. Subjective Subjective Sinus tachycardia at 101. Still complains about SOB and chest tightness Objective Last 24 Hour Vital Signs Date Time Temp Pulse Resp B/P Pulse Ox O2 Delivery O2 Flow Rate FiO2 07/06/16 19:54 97.7 101 19 137/93 97 Room Air 07/06/16 19:45 100 20 99 Room Air 07/06/16 19:30 99 Room Air 07/06/16 19:30 98 20 99 Room Air 07/06/16 19:30 Room Air 07/06/16 19:30 21 07/06/16 16:04 102 22 99 Nasal Cannula 2.0 07/06/16 15:56 98.3 100 20 137/84 99 Nasal Cannula 2.0 07/06/16 15:51 28 07/06/16 15:51 92 20 95 Nasal Cannula 2.0 07/06/16 11:49 97.8 95 20 125/67 97 Room Air 07/06/16 11:11 Room Air 07/06/16 11:11 Room Air 07/06/16 09:15 99 18 Nasal Cannula 2.0 07/06/16 08:00 96.9 99 18 147/92 97 Room Air 07/06/16 07:41 Room Air 07/06/16 07:40 Room Air 07/06/16 07:39 Room Air 07/06/16 07:39 98 Room Air 07/06/16 04:10 101 16 100 Room Air 07/06/16 04:02 98 18 98 Room Air 07/06/16 04:00 97.0 97 17 128/88 97 Room Air 07/06/16 00:00 97.5 97 17 138/84 97 Room Air 07/05/16 23:41 106 16 100 Room Air 07/05/16 23:36 102 18 98 Room Air Intake and Output 07/05/16 07/06/16 19:00 07:00 Intake Total 183.333 ml 480 ml Output Total 1 ml Balance 182.333 ml 480 ml Intake Oral 480 ml IV Total 183.333 ml Stool Total 1 ml # Voids 5 3 # Bowel Movements 1 Laboratory Tests Test 07/06/16 08:10 Sodium Level 141 mEQ/L (135-145) Potassium Level 3.8 mEQ/L (3.4-4.9) Chloride Level 98 mEQ/L (98-107) Carbon Dioxide Level 29 mEQ/L (20-30) Anion Gap 14 (5-15) Blood Urea Nitrogen 16 mg/dL (7-23) Creatinine 1.0 mg/dL (0.7-1.2) Estimat Glomerular Filtration Rate > 60 mL/min (>60) Glucose Level 121 mg/dL (74-106) H Calcium Level 9.6 mg/dL (8.6-10.2) Microbiology Date/Time Source Procedure Growth Status 07/04/16 11:40 Sputum Gram Stain - Final Complete 07/04/16 11:40 Sputum Sputum Culture - Final NORMAL UPPER RESPIRATORY ARNOL PRESENT Complete Objective HEAD AND NECK: Atraumatic, normocephalic, Extraocular movement intact. Pupils are reactive to light and accommodation. Neck: No JVP. No carotid bruit LUNGS: Diffuse wheezing in both lung, right basilar tubular sound. CARDIAC: Tachycardic, normal S1 and S2. No murmur, gallops or rubs. ABDOMEN: Soft, nontender, nondistended, no HSM, + BS EXTREMITY: No edema, clubbing or cyanosis. ZENIA MATHEW July 06, 2016 22:20
--- NOTE | 2016-07-06 22:56 | Pulmonology Progress Note ---
Assessment/Plan Problems: (1) Purulent bronchitis (2) Persistent cough (3) Asthma (4) MRSA (methicillin resistant Staphylococcus aureus) infection Assessment/Plan sputum has staph, sensitivity pending Iv antibiotics pt has picc line now check electrolytes dvt prophylaxis antitussives dc planning in progress Subjective ROS Limited/Unobtainable: No Constitutional: Reports: no symptoms Respiratory: Reports: no symptoms Allergies: Coded Allergies: HYDROMORPHONE (Verified Allergy, Unknown, 06/29/16) Objective Last 24 Hour Vital Signs Date Time Temp Pulse Resp B/P Pulse Ox O2 Delivery O2 Flow Rate FiO2 07/06/16 19:54 97.7 101 19 137/93 97 Room Air 07/06/16 19:45 100 20 99 Room Air 07/06/16 19:30 99 Room Air 07/06/16 19:30 98 20 99 Room Air 07/06/16 19:30 Room Air 21 07/06/16 19:30 21 07/06/16 16:04 102 22 99 Nasal Cannula 2.0 28 07/06/16 15:56 98.3 100 20 137/84 99 Nasal Cannula 2.0 07/06/16 15:51 28 07/06/16 15:51 92 20 95 Nasal Cannula 2.0 28 07/06/16 11:49 97.8 95 20 125/67 97 Room Air 07/06/16 11:11 Room Air 07/06/16 11:11 Room Air 07/06/16 09:15 99 18 Nasal Cannula 2.0 07/06/16 08:00 96.9 99 18 147/92 97 Room Air 07/06/16 07:41 Room Air 07/06/16 07:40 Room Air 07/06/16 07:39 Room Air 07/06/16 07:39 98 Room Air 07/06/16 04:10 101 16 100 Room Air 07/06/16 04:02 98 18 98 Room Air 07/06/16 04:00 97.0 97 17 128/88 97 Room Air 07/06/16 00:00 97.5 97 17 138/84 97 Room Air 07/05/16 23:41 106 16 100 Room Air 07/05/16 23:36 102 18 98 Room Air Intake and Output 07/05/16 07/06/16 19:00 07:00 Intake Total 183.333 ml 480 ml Output Total 1 ml Balance 182.333 ml 480 ml Intake Oral 480 ml IV Total 183.333 ml Stool Total 1 ml # Voids 5 3 # Bowel Movements 1 Objective General Appearance: WD/WN HEENT: normocephalic, atraumatic Respiratory/Chest: chest wall non-tender, lungs clear Cardiovascular: normal peripheral pulses, normal rate Abdomen: normal bowel sounds, no organomegaly Genitourinary: normal external genitalia Neurologic/Psychiatric: manager building II-XII grossly normal Microbiology Date/Time Source Procedure Growth Status 07/04/16 11:40 Sputum Gram Stain - Final Complete 07/04/16 11:40 Sputum Sputum Culture - Final NORMAL UPPER RESPIRATORY ARNOL PRESENT Complete Laboratory Tests 07/06/16 08:10: Sodium Level 141, Potassium Level 3.8, Chloride Level 98, Carbon Dioxide Level 29, Anion Gap 14, Blood Urea Nitrogen 16, Creatinine 1.0, Estimat Glomerular Filtration Rate > 60, Glucose Level 121H, Calcium Level 9.6 Current Medications Medications (Trade) Dose Ordered Sig/Ben Route PRN Reason Start Time Stop Time Status Last Admin Dose Admin Acetaminophen (Tylenol) 650 mg Q6H PRN ORAL Mild Pain (Pain Scale 1-3) 06/29/16 21:45 07/29/16 21:44 Albuterol/ Ipratropium (DuoNeb 0.5-3(2.5)mg/3ml) 3 ml Q4HRT HHN 07/03/16 23:00 07/08/16 22:59 07/06/16 20:42 Alprazolam (Xanax) 1 mg BID ORAL 07/01/16 09:00 07/08/16 08:59 07/06/16 19:58 Bupropion HCl (Wellbutrin XL) 300 mg DAILY ORAL 07/01/16 09:00 07/31/16 08:59 07/06/16 08:48 Chlorhexidine Gluconate (Penny-Hex 2%) 1 applic DAILY TOPIC 07/04/16 09:00 08/03/16 08:59 07/04/16 09:04 Dextrose (Dextrose 50%) STAT PRN IV Hypoglycemia 06/29/16 21:45 07/29/16 21:44 Docusate Sodium (Colace) 100 mg EVERY 12 HOURS ORAL 06/30/16 09:00 07/30/16 08:59 07/06/16 08:49 Mupirocin (Bactroban Oint) 1 applic EVERY 12 HOURS TOPIC 07/03/16 15:00 07/08/16 14:59 07/06/16 20:42 Pantoprazole (Protonix) 40 mg ACBREAKFAST ORAL 07/04/16 06:30 08/02/16 08:59 07/06/16 05:14 Polyethylene Glycol (Miralax) 17 gm DAILYPRN PRN ORAL Constipation 07/04/16 11:45 08/03/16 11:44 07/04/16 18:52 Prednisone 50 mg 50 mg Taper DAILY ORAL 07/05/16 09:00 07/11/16 08:59 07/06/16 08:49 Promethazine HCl/ Codeine (Phenergan with Codeine) 5 ml Q4H PRN ORAL For Cough 06/30/16 15:45 07/30/16 15:44 07/06/16 03:02 Valacyclovir HCl (Valtrex) 1,000 mg DAILY ORAL 07/03/16 09:00 08/02/16 08:59 Vancomycin HCl (Vanco rx to dose) 1 ea DAILY PRN MISC Per rx protocol 06/29/16 21:45 07/29/16 21:44 Vancomycin HCl/ Dextrose (Vancomycin/D5W) 325 ml @ 162.5 mls/ hr Q8HR IVPB 07/06/16 14:00 07/11/16 13:59 07/06/16 22:30 Zolpidem Tartrate (Ambien) 5 mg HSPRN PRN ORAL Insomnia 06/29/16 21:45 07/29/16 21:44 07/03/16 00:05 VIDA GUTIERREZ July 06, 2016 22:56
[2016-07-07] MEDS: DuoNeb 0.5-3(2.5)mg/3ml neb HHN SCH ×2 (01:34→06:58)
[2016-07-07 04:00] VITALS: BP 117/78
[2016-07-07] MEDS: Vancomycin 1750mg/D5W 300ml IVPB SCH ×2 (05:58)
--- NOTE | 2016-07-07 06:01 | Consultation ---
DATE OF CONSULTATION: HISTORY OF PRESENT ILLNESS: The patient is a 45-year-old male with a history of multiple medical problems including pneumonia, asthma, MRSA, who has been admitted to the hospital for medical stabilization. The patient has a history of anxiety disorder and depression. The patient currently does not endorse any depressive symptoms. However, he does have anxiety. He also has recently lost his father, and he is currently able to cope with his distresses. He does not have any psychotic or manic symptoms. PAST PSYCHIATRY HISTORY: Include anxiety disorder. No psychiatric hospitalization. PAST MEDICAL HISTORY: Significant for asthma. ALLERGIES: Hydromorphone. SUBSTANCE ABUSE HISTORY: No history illicit drug use or alcohol. SOCIAL HISTORY: The patient lives at home. MENTAL STATUS EXAMINATION: The patient is alert, oriented x3. Mood is anxious. Affect is constricted. Congruent mood. Thought process is linear. Thought content, no suicidal or homicidal ideation. ASSESSMENT: [place] I Major depressive disorder. Anxiety disorder. [place] II Deferred. PLAN: 1. The patient will be continued on Wellbutrin XL 300 mg daily, Ativan as needed, Xanax 1 mg by mouth twice a day. 2. Provide the patient with supportive therapy and reality orientation. Lyle Contreras M.D. DR: Oumar JOB#: [id number] CC:
[2016-07-07 08:09] LABS: BASOPHILS % (AUTO) 0.8 % (0.0-2.0); EOSINOPHILS % (AUTO) 0.4 % (0.0-3.0); LYMPHOCYTES % (AUTO) 12.3 % (20.0-45.0); MEAN CORPUSCULAR HEMOGLOBIN 31.9 PG (27.0-31.0); MEAN CORPUSCULAR HGB CONC 34.4 G/DL (32.0-36.0); MEAN CORPUSCULAR VOLUME 93 FL (80-99); MEAN PLATELET VOLUME 6.3 FL (6.5-10.1); MONOCYTES % (AUTO) 7.3 % (1.0-10.0); NEUTROPHILS % (AUTO) 79.3 % (45.0-75.0); PLATELET COUNT 215 K/UL (150-450); RED BLOOD COUNT 4.47 M/UL (4.70-6.10); RED CELL DISTRIBUTION WIDTH 11.4 % (11.6-14.8); WHITE BLOOD COUNT 15.6 K/UL (4.8-10.8)
[2016-07-07] MEDS ORDERED: PREDNISONE20 MG ORAL (08:09)
[2016-07-07 08:31] LABS: ANION GAP 13 (5-15); CALCIUM 9.2 mg/dL (8.6-10.2); CARBON DIOXIDE 30 mEQ/L (20-30); CHLORIDE 98 mEQ/L (98-107); CREATININE 0.9 mg/dL (0.7-1.2); GLOMERULAR FILTRATION RATE > 60 mL/min (>60); HEMOLYSIS 13; POTASSIUM 3.8 mEQ/L (3.4-4.9); SODIUM 141 mEQ/L (135-145)
[2016-07-07 08:34] VITALS: BP 134/85
[2016-07-07] MEDS: Docusate 100mg cap ORAL SCH (08:37)
[2016-07-07] MEDS: PredniSONE 20mg tab ORAL SCH (08:37)
[2016-07-07] MEDS: Dyna-Hex 2% Top Sol 8oz TOPIC SCH (08:37)
[2016-07-07] MEDS: ALPRAZolam 0.5mg tab ORAL SCH ×2 (08:37→08:41)
[2016-07-07] MEDS: BuPROPion XL 150mg tab ORAL SCH (08:38)
--- NOTE | 2016-07-07 08:43 | General Progress Note ---
Progress Note Progress Note [id number] d/c note dictated TOSIN MONSIVAIS July 07, 2016 08:43
[2016-07-07] MEDS ORDERED: VANCOMYCIN1 GM/2502 IVPB (09:19)
[2016-07-07] MEDS ORDERED: Tubing IV Secondary IV ONE (09:59)
--- NOTE | 2016-07-07 22:40 | Cardiology Progress Note ---
Assessment/Plan Assessment/Plan 1. Pleuritic chest pain, on IV Abx. 2. Dyspnea likely due to PNA. 3. Sinus tachycardia, continue hydration and pain control. Time of this report does not reflect time of encounter. Subjective Subjective Sinus rhythm at 95. Pleuritic chest pain. Objective Last 24 Hour Vital Signs Date Time Temp Pulse Resp B/P Pulse Ox O2 Delivery O2 Flow Rate FiO2 07/07/16 08:34 97.9 105 15 134/85 96 Room Air 07/07/16 07:06 95 18 100 Nasal Cannula 2.0 07/07/16 06:58 99 18 98 Nasal Cannula 2.0 07/07/16 06:58 28 07/07/16 06:58 Nasal Cannula 2.0 07/07/16 06:58 98 Nasal Cannula 2.0 07/07/16 04:00 97.3 90 18 117/78 99 Room Air 07/07/16 02:56 Room Air 07/07/16 02:55 Room Air 07/07/16 02:55 21 07/07/16 01:36 86 20 100 Room Air 21 07/07/16 01:35 86 20 97 Room Air 21 07/07/16 01:35 21 07/06/16 23:58 97.2 89 19 115/70 98 Room Air 07/06/16 23:30 20 07/06/16 23:30 20 Intake and Output 07/06/16 07/07/16 19:00 07:00 Intake Total 1580 ml 1045.0 ml Balance 1580 ml 1045.0 ml Intake Oral 1580 ml 720 ml IV Total 325.0 ml # Voids 5 3 Laboratory Tests Test 07/07/16 05:30 White Blood Count 15.6 K/UL (4.8-10.8) H Red Blood Count 4.47 M/UL (4.70-6.10) L Hemoglobin 14.3 G/DL (14.2-18.0) Hematocrit 41.5 % (42.0-52.0) L Mean Corpuscular Volume 93 FL (80-99) Mean Corpuscular Hemoglobin 31.9 PG (27.0-31.0) H Mean Corpuscular Hemoglobin Concent 34.4 G/DL (32.0-36.0) Red Cell Distribution Width 11.4 % (11.6-14.8) L Platelet Count 215 K/UL (150-450) Mean Platelet Volume 6.3 FL (6.5-10.1) L Neutrophils (%) (Auto) 79.3 % (45.0-75.0) H Lymphocytes (%) (Auto) 12.3 % (20.0-45.0) L Monocytes (%) (Auto) 7.3 % (1.0-10.0) Eosinophils (%) (Auto) 0.4 % (0.0-3.0) Basophils (%) (Auto) 0.8 % (0.0-2.0) Sodium Level 141 mEQ/L (135-145) Potassium Level 3.8 mEQ/L (3.4-4.9) Chloride Level 98 mEQ/L (98-107) Carbon Dioxide Level 30 mEQ/L (20-30) Anion Gap 13 (5-15) Blood Urea Nitrogen 17 mg/dL (7-23) Creatinine 0.9 mg/dL (0.7-1.2) Estimat Glomerular Filtration Rate > 60 mL/min (>60) Glucose Level 98 mg/dL (74-106) Calcium Level 9.2 mg/dL (8.6-10.2) Objective HEAD AND NECK: Atraumatic, normocephalic, Extraocular movement intact. Pupils are reactive to light and accommodation. Neck: No JVP. No carotid bruit LUNGS: Diffuse wheezing in both lung, right basilar tubular sound. CARDIAC: Tachycardic, normal S1 and S2. No murmur, gallops or rubs. ABDOMEN: Soft, nontender, nondistended, no HSM, + BS EXTREMITY: No edema, clubbing or cyanosis. ZENIA MATHEW July 07, 2016 22:40
--- NOTE | 2016-07-07 22:47 | Discharge Summary ---
DATE OF ADMISSION: 06/29/2016 DATE OF DISCHARGE: 07/07/2016 ADMITTING DIAGNOSES: 1. Methicillin-resistant Staphylococcus aureus pneumonia. 2. Asthma exacerbation. 3. History of depression. 4. History of anxiety. 5. History of attention deficit hyperactivity disorder. COURSE OF HOSPITAL ADMISSION: The patient is a very pleasant 45-year-old male with a past medical history significant for history of asthma, who has being having cough and has been coughing and complaining of cough and phlegm. He was treated as an outpatient with Bactrim with no improvement. The patient was found to have MRSA in the sputum, which was only sensitive to vancomycin. The patient was consequently sent to the emergency room. Over the course of hospital admission, the patient had a complete evaluation including CT of the chest, which was negative. The patient was started on breathing treatment around the clock and started on Solu-Medrol and start on vancomycin based on the business risk consultant's recommendation. The patient's condition got improved, but need to continue for five more days as an outpatient for vancomycin, so a PICC line was placed. The patient will be discharged home and will continue vancomycin and continue on tapering dose of Solu-Medrol. Upon discharge, the patient was alert and awake and had no complaint. He was able to walk. Complaining of minimal cough. His cough has significantly improved. PHYSICAL EXAMINATION: VITAL SIGNS: The patient had a temperature of 97, pulse came down from 105 to 98, blood pressure 117/78, and respiratory rate 18. HEENT AND NECK: No JVP. No LAD. No thyromegaly. Extraocular movements are intact. Pupils are reactive to light and accommodation. LUNGS: Clear to auscultation. CARDIAC: Regular rate and rhythm. S1-S2. No murmur. No rub. ABDOMEN: Soft, nontender, and nondistended. EXTREMITIES: Trace edema. No clubbing. No cyanosis. LABORATORY VALUES: The patient had a WBC count of 15.4, hemoglobin of 14.4, hematocrit of 41, and platelet count of 217,000. Chemistry revealed sodium of 141, potassium 3.8, chloride 98, bicarb 30, BUN 17, and creatinine 0.9. The patient's CT scan was also reviewed and was negative for any active disease. DISCHARGE DIAGNOSES: 1. Methicillin-resistant Staphylococcus aureus pneumonia. 2. Asthma exacerbation. 3. Anxiety. 4. Attention deficit hyperactivity disorder. 5. Tachycardia. DISPOSITION: Disposition is going to be home with a followup with his primary doctor, Dr. Seven Rivera, with a tapering dose of steroid. Diet is going to be a regular diet. Activity is going to be as tolerated. Miryam Irving M.D. DR: GABRIELLE JOB#: [id number] CC:
--- NOTE | 2016-07-07 23:47 | Pulmonology Progress Note ---
Assessment/Plan Problems: (1) Purulent bronchitis (2) Persistent cough (3) Asthma (4) MRSA (methicillin resistant Staphylococcus aureus) infection Assessment/Plan sputum has staph, sensitivity pending Iv antibiotics pt has picc line now check electrolytes dvt prophylaxis antitussives dc planning in progress Subjective Allergies: Coded Allergies: HYDROMORPHONE (Verified Allergy, Unknown, 06/29/16) Objective Last 24 Hour Vital Signs Date Time Temp Pulse Resp B/P Pulse Ox O2 Delivery O2 Flow Rate FiO2 07/07/16 08:34 97.9 105 15 134/85 96 Room Air 07/07/16 07:06 95 18 100 Nasal Cannula 2.0 28 07/07/16 06:58 99 18 98 Nasal Cannula 2.0 07/07/16 06:58 28 07/07/16 06:58 Nasal Cannula 2.0 28 07/07/16 06:58 98 Nasal Cannula 2.0 28 07/07/16 04:00 97.3 90 18 117/78 99 Room Air 07/07/16 02:56 Room Air 07/07/16 02:55 Room Air 07/07/16 02:55 21 07/07/16 01:36 86 20 100 Room Air 21 07/07/16 01:35 86 20 97 Room Air 21 07/07/16 01:35 21 07/06/16 23:58 97.2 89 19 115/70 98 Room Air Intake and Output 07/06/16 07/07/16 19:00 07:00 Intake Total 1580 ml 1045.0 ml Balance 1580 ml 1045.0 ml Intake Oral 1580 ml 720 ml IV Total 325.0 ml # Voids 5 3 Objective General Appearance: WD/WN HEENT: normocephalic, atraumatic Respiratory/Chest: chest wall non-tender, lungs clear Cardiovascular: normal peripheral pulses, normal rate Abdomen: normal bowel sounds, no organomegaly Genitourinary: normal external genitalia Neurologic/Psychiatric: regulatory affairs strategy specialist II-XII grossly normal Laboratory Tests 07/07/16 05:30: White Blood Count 15.6H, Red Blood Count 4.47L, Hemoglobin 14.3, Hematocrit 41.5L, Mean Corpuscular Volume 93, Mean Corpuscular Hemoglobin 31.9H, Mean Corpuscular Hemoglobin Concent 34.4, Red Cell Distribution Width 11.4L, Platelet Count 215, Mean Platelet Volume 6.3L, Neutrophils (%) (Auto) 79.3H, Lymphocytes (%) (Auto) 12.3L, Monocytes (%) (Auto) 7.3, Eosinophils (%) (Auto) 0.4, Basophils (%) (Auto) 0.8, Sodium Level 141, Potassium Level 3.8, Chloride Level 98, Carbon Dioxide Level 30, Anion Gap 13, Blood Urea Nitrogen 17, Creatinine 0.9, Estimat Glomerular Filtration Rate > 60, Glucose Level 98, Calcium Level 9.2 VIDA GUTIERREZ July 07, 2016 23:47
== END 2016-07-07 10:00 | disposition home health service (06) | DRG 178 ==
LOC: ENRESERVDT → ENRESERVTM → EMR 17:35 → EDBEDREQ 18:13 → 4E 19:20 → EDBEDREQ 21:30 → 4E 07-04 15:43
PROC: 02HV33Z Insertion of Infusion Device into Superior Vena Cava, Percutaneous Approach (ICD-10-PCS; principal; 2016-07-03)
DX: J15.212 Pneumonia due to Methicillin resistant Staphylococcus aureus (principal); J45.901 Unspecified asthma with (acute) exacerbation; F41.9 Anxiety disorder, unspecified; F90.9 Attention-deficit hyperactivity disorder, unspecified type; R00.0 Tachycardia, unspecified; Z88.6 Allergy status to analgesic agent; F32.9 Major depressive disorder, single episode, unspecified; Z87.891 Personal history of nicotine dependence; R07.89 Other chest pain
CPT/HCPCS: 36415; 36569; 71010; 71260; 76937; 80048; 80053; 80202; 81003; 83605; 85007; 85025; 87040; 87070; 87081; 87181; 87205; 93005; 94640; 94664; 94760; J7620

== ENCOUNTER 2017-01-15 10:12 | Outpatient (CLI) | payer BC ==
[~2017-01-15 10:12] MED LIST: ACCOLATE20 M1 ORAL; ADDERAL20 MG ORAL; ALBUTEROL2.5 MG/3 M INH; ANDROGEL2.5 GM TD; MIRTAZAPINE30 MG ORAL; PREDNISONE20 MG ORAL; TESTOSTERO200 MG/1 M IM; TRUVADA 200 MG1 EAC1 ORAL; VALACYCLOVIR500 MG ORAL; VANCOMYCIN1 GM/2502 IVPB; WELLBUTRIN XL150 M1 ORAL; XANAX1 MG ORAL
--- NOTE | 2017-01-15 11:08 | Pre-Procedure Note/Attestation ---
Pre-Procedure Note/Attestation Complete Prior to Procedure Planned Procedure: not applicable Procedure Narrative: Peripherally inserted central catheter Indications for Procedure Pre-Operative Diagnosis: needs IV access Attestation I attest that I discussed the nature of the procedure; its benefits; risks and complications; and alternatives (and the risks and benefits of such alternatives ), prior to the procedure, with the patient (or the patient's legal customer assistance representative). I attest that, if there was a reasonable possibility of needing a blood transfusion, the patient (or the patient's legal customer assistance representative) was given the [facility] standardized written summary, pursuant to the [place] Blood Safety Act ([place] Health and Safety Code # 1645, as amended). I attest that I re-evaluated the patient just prior to the surgery and that there has been no change in the patient's H&P, except as documented below: MAMIE CAO M.D. Jan 15, 2017 11:08
--- NOTE | 2017-01-15 11:49 | Diagnostic Imaging Report ---
Indications: Needs long-term IV access Technique: Ultrasound confirms patent compressible left basilic basilic vein. Total sterile technique, including sterile probe cover and sterile gel, hat, mask,, sterile gown, large sterile drape, and preparation with 2% chlorhexidine utilized. Local anesthesia with 1% lidocaine. Under real-time ultrasound guidance, puncture basilic vein using 21-gauge needle, documented and archived, passage 0.018 guidewire under direct fluoroscopy, which was used to determine appropriate catheter length, exchange for 5 Chinese peel-away sheath. 5 Chinese Bard dual-lumen power PICC cut to cm. It was inserted through the peel-away sheath. Peel-away sheath and guidewire removed. Catheter fixed to the skin. Both catheter ports aspirated and flushed. Patient tolerated procedure well, without immediate complication. Digital radiograph documents satisfactory catheter tip position, at the cavoatrial junction. Total fluoroscopy time 0.3 minutes. Total dose area product 8.5 dGycm2 Impression: Successful placement of left arm PICC under sonographic and fluoroscopic guidance, as described above.
== END 2017-01-15 12:12 | disposition home or self-care (01) ==
LOC: RAD 10:12
DX: Z79.899 Other long term (current) drug therapy (principal)
CPT/HCPCS: 36569; 76937